=== PATIENT | male | born 1950 | race Two or more races ===

== ENCOUNTER 2020-04-11 12:21 | Emergency (ER) | payer MEDICARE, OTHER ==
[~2020-04-11] VITALS: Ht 185.4 cm; Wt 90.7 kg
[2020-04-11 13:05] LABS: Basophils # (auto) 0 10 ^3/uL (0-0.2); Basophils % (auto) 0.4 % (0.0-2.0); Eosinophils # (auto) 0.1 10 ^3/uL (0-0.8); Hematocrit 41.1 % (41.0-53.0); Hemoglobin 14.5 g/dL (13.5-17.5); Lymphocytes # (auto) 1.7 10 ^3/uL (0.4-5.4); Lymphocytes % (auto) 18.3 % (10.0-50.0); Mean Corpuscular Hemoglobin 30.5 pg (28.0-32.0); Mean Corpuscular Hgb Conc. 35.3 g/dL (32.0-36.0); Mean Corpuscular Volume 86.5 fL (80.0-100.0); Monocytes # (auto) 0.7 10 ^3/uL (0-1.3); Monocytes % (auto) 7.9 % (0.0-12.0); Neutrophils # (auto) 6.8 10 ^3/uL (1.6-8.6); Neutrophils % (auto) 72.4 % (37.0-80.0); Platelet Count (auto) 267 10^3/uL (140-450); Red Blood Cells 4.76 10^6/uL (4.5-5.90); Red Cell Distribution Width 12.9 % (11.8-14.3); White Blood Cell 9.4 10^3/uL (4.4-10.8)
[2020-04-11 13:16] LABS: Albumin 3.7 g/dL (3.4-5.0); Amylase 27 U/L (25-115); Anion Gap 5 (5-15); Blood Urea Nitrogen 11 mg/dL (7-18); Calcium 8.9 mg/dL (8.5-10.1); Carbon Dioxide 27 mmol/L (21-32); Chloride 104 mmol/L (98-107); Glucose 103 mg/dL (74-106); Lipase 76 U/L (73-393); Potassium 3.8 mmol/L (3.5-5.1); Sodium 136 mmol/L (136-145)
[2020-04-11 13:26] LABS: Alanine Aminotransferase 19 U/L (16-61); Alkaline Phosphatase 80 U/L (45-117); Aspartate Aminotransferase 20 U/L (15-37); BUN/Creatinine Ratio 9.8; Bilirubin, Total 0.6 mg/dL (0.2-1.0); GFR African American 83 mL/min; GFR Non-African American 69 mL/min; Total Protein 7.7 g/dL (6.4-8.2)
[2020-04-11] MEDS ORDERED: MORPHINE SULF INJ 2 MG/ML SYRINGE 1ML IM ONE (19:45)
[2020-04-11] MEDS ORDERED: ONDANSETRON HCL 4 MG/2 ML VIAL IV ONE (19:45)
[2020-04-11 22:29] VITALS: BP 120/78
== END 2020-04-11 22:31 | disposition short-term general hospital (02) ==
LOC: ER 12:21
DX: R10.9 Unspecified abdominal pain (principal); R59.1 Generalized enlarged lymph nodes; C85.90 Non-Hodgkin lymphoma, unspecified, unspecified site
CPT/HCPCS: 36415; 71045; 74176; 80053; 82150; 83690; 84484; 85025; 96372; 96374; 99285; J2270; J2405

== ENCOUNTER 2021-11-06 15:26 | Inpatient (IN) | payer MEDICARE, OTHER ==
[~2021-11-06] VITALS: Ht 182.9 cm; Wt 71.3 kg
[2021-11-06] MEDS ORDERED: SODIUM CHLORIDE 0.9% 1,000 ML IV ONE ×2 (16:45)
[2021-11-06 18:29] LABS: Hematocrit 32.9 % (41.0-53.0); Hemoglobin 11.1 g/dL (13.5-17.5); Mean Corpuscular Hemoglobin 31.2 pg (28.0-32.0); Mean Corpuscular Hgb Conc. 33.8 g/dL (32.0-36.0); Mean Corpuscular Volume 92.4 fL (80.0-100.0); Red Blood Cells 3.57 10^6/uL (4.5-5.90); Red Cell Distribution Width 21.9 % (11.8-14.3); White Blood Cell 18.1 10^3/uL (4.4-10.8)
[2021-11-06 18:43] LABS: Urine Bacteria FEW /hpf (None Seen); Urine Blood Negative /uL (Negative); Urine Mucus FEW (None Seen); Urine Specific Gravity 1.014 (1.001-1.035); Urine WBC 8 /hpf (0 - 3)
[2021-11-06 18:49] LABS: Albumin 1.9 g/dL (3.4-5.0); Calcium 8.8 mg/dL (8.5-10.1); Potassium 3.9 mmol/L (3.5-5.1)
[2021-11-06 18:50] LABS: INR 1.22 (0.9-1.15); Partial Thromboplastin Time 43.7 sec (23.6-33.0)
[2021-11-06 18:51] LABS: BUN/Creatinine Ratio 33.8
[2021-11-06 19:04] LABS: Bilirubin, Total 0.7 mg/dL (0.2-1.0); Total Protein 5.5 g/dL (6.4-8.2)
[2021-11-06 19:15] LABS: Basophils % (manual) 0 (0.0-2.0); Blast Cells 0; Eosinophils % (manual) 0 (0-7); Metamyelocytes % 0; Myelocytes % 0; Promyelocytes % 0
[2021-11-06 19:35] LABS: Band Neutrophils % (manual) 2; Lymphocytes % (manual) 5 (10.0-50.0); Monocytes % (manual) 7 (0-12); Reactive Lymphocytes 3
[2021-11-06] MEDS ORDERED: FUROSEMIDE 40 MG/4 ML VIAL IV ONE (23:30)
[2021-11-06] MEDS ORDERED: cefTRIAXone 1GM/50ML D5W 50 ML IV ONE (23:30)
[2021-11-06] MEDS ORDERED: metroNIDAZOLE 500MG/100ML 100 ML IV ONE (23:30)
[2021-11-07] VITALS (7 sets, daily range): BP systolic 125–141; BP diastolic 91–96
[2021-11-07 00:02] LABS: Cholesterol 100 mg/dL (< 200); Lipase 39 U/L (73-393); Triglycerides 88 mg/dL (< 150)
[2021-11-07 00:04] LABS: HDL Cholesterol 27 mg/dL (40-59); LDL Cholesterol 61 mg/dL (< 100)
[2021-11-07] MEDS: MORPHINE SULFATE INJ 2 MG/ml SYRG IV PRN ×2 (03:37→16:54)
[2021-11-07] MEDS ORDERED: metroNIDAZOLE 500MG/100ML 100 ML IV SCH (06:00)
[2021-11-07 07:55] LABS: Hematocrit 33.4 % (41.0-53.0); Hemoglobin 11.2 g/dL (13.5-17.5); Mean Corpuscular Hemoglobin 31.3 pg (28.0-32.0); Mean Corpuscular Hgb Conc. 33.6 g/dL (32.0-36.0); Red Blood Cells 3.59 10^6/uL (4.5-5.90); White Blood Cell 23.7 10^3/uL (4.4-10.8)
[2021-11-07] MEDS ORDERED: TRAZ-184 PO (08:00)
[2021-11-07] MEDS ORDERED: MORP30TA5 PO (08:00)
[2021-11-07] MEDS ORDERED: PANT40T PO (08:00)
[2021-11-07] MEDS ORDERED: ONDA-180 PO (08:00)
[2021-11-07] MEDS ORDERED: PARO-135 (08:00)
[2021-11-07] MEDS ORDERED: FURO40TA4 PO (08:00)
[2021-11-07] MEDS ORDERED: LEVE750T3 PO (08:00)
[2021-11-07 08:15] LABS: BUN/Creatinine Ratio 32.2; Calcium 9.1 mg/dL (8.5-10.1); Potassium 3.9 mmol/L (3.5-5.1)
[2021-11-07 08:17] LABS: Red Cell Distribution Width 21.8 % (11.8-14.3)
[2021-11-07 08:18] LABS: Total Protein 5.5 g/dL (6.4-8.2)
[2021-11-07 08:19] LABS: Basophils % (manual) 0 (0.0-2.0); Blast Cells 0; Eosinophils % (manual) 0 (0-7); Metamyelocytes % 0; Myelocytes % 0; Promyelocytes % 0; Reactive Lymphocytes 0
[2021-11-07 08:48] LABS: Band Neutrophils % (manual) 12; Lymphocytes % (manual) 1 (10.0-50.0); Monocytes % (manual) 12 (0-12)
[2021-11-07] MEDS ORDERED: FUROSEMIDE 40 MG/4 ML VIAL IV SCH (10:00)
[2021-11-07] MEDS: ENOXAPARIN SOD 40 MG/0.4 ML SYRINGE SC SCH (10:01)
[2021-11-07] MEDS ORDERED: PIPERACILLIN-TAZOB 3.375GM 100 ML IV ONE (12:45)
[2021-11-07] MEDS ORDERED: CLINDAMYCIN 900MG IV 50 ML IV ONE (12:45)
[2021-11-07] MEDS ORDERED: SODIUM CHLORIDE 0.9% 1,000 ML IV ONE (14:30)
[2021-11-07] MEDS: SODIUM CHLORIDE 0.9% 1,000 ML IV SCH (14:44)
[2021-11-07] MEDS: PIPERACILLIN-TAZOB 3.375GM 100 ML IV SCH (16:51)
[2021-11-07] MEDS: ONDANSETRON HCL 4 MG/2 ML VIAL IV PRN (16:55)
[2021-11-07] MEDS: CLINDAMYCIN 600MG IV 50 ML IV SCH (20:57)
[2021-11-07] MEDS ORDERED: cefTRIAXone 1GM/50ML D5W 50 ML IV SCH (22:00)
[2021-11-08] MEDS: PIPERACILLIN-TAZOB 3.375GM 100 ML IV SCH ×4 (00:01→18:38)
[2021-11-08] MEDS: MORPHINE SULFATE INJ 2 MG/ml SYRG IV PRN ×2 (00:23→05:42)
[2021-11-08] MEDS: SODIUM CHLORIDE 0.9% 1,000 ML IV SCH ×2 (00:30→13:10)
[2021-11-08 05:00] VITALS: BP 140/89
[2021-11-08] MEDS: CLINDAMYCIN 600MG IV 50 ML IV SCH (05:01)
[2021-11-08] MEDS: ENOXAPARIN SOD 40 MG/0.4 ML SYRINGE SC SCH (07:35)
[2021-11-08] MEDS ORDERED: LIDOCAINE 2%HCL (LOCAL ANESTH.) INJ 10ml MDV ONE (08:33)
[2021-11-08] MEDS ORDERED: OMNIPAQUE ORAL SOLN 500ml 12mg/ml PO ONE (08:36)
[2021-11-08 09:00] VITALS: BP 119/73
[2021-11-08] MEDS ORDERED: IOHEXOL 350 MG/ML 100ML IJ ONE (09:06)
[2021-11-08 13:00] VITALS: BP 98/65
[2021-11-08] MEDS: HYDROmorphone HCL 2 MG/ML VL/or syr IV PRN (13:34)
[2021-11-08 17:00] VITALS: BP 108/69
[2021-11-08 22:00] VITALS: BP 105/64
[2021-11-08] MEDS ORDERED: TEMAZEPAM 15 MG CAP PO ONE (22:45)
[2021-11-08] MEDS: metroNIDAZOLE 500MG/100ML 100 ML IV SCH (22:50)
[2021-11-09] MEDS: PIPERACILLIN-TAZOB 3.375GM 100 ML IV SCH ×4 (00:05→18:53)
[2021-11-09 05:00] VITALS: BP 103/70
[2021-11-09] MEDS: SODIUM CHLORIDE 0.9% 1,000 ML IV SCH ×2 (05:25→22:40)
[2021-11-09] MEDS: HYDROmorphone HCL 2 MG/ML VL/or syr IV PRN ×3 (05:53→20:16)
[2021-11-09] MEDS: metroNIDAZOLE 500MG/100ML 100 ML IV SCH ×3 (06:00→22:40)
[2021-11-09 09:00] VITALS: BP 105/69
[2021-11-09 09:00] LABS: Hematocrit 25.9 % (41.0-53.0); Mean Corpuscular Hemoglobin 31.8 pg (28.0-32.0); Mean Corpuscular Hgb Conc. 34.7 g/dL (32.0-36.0); Mean Corpuscular Volume 91.9 fL (80.0-100.0); Red Blood Cells 2.81 10^6/uL (4.5-5.90); White Blood Cell 13.5 10^3/uL (4.4-10.8)
[2021-11-09 09:09] LABS: Red Cell Distribution Width 21.3 % (11.8-14.3)
[2021-11-09 09:11] LABS: Basophils % (manual) 0 (0.0-2.0); Blast Cells 0; Eosinophils % (manual) 0 (0-7); Metamyelocytes % 0; Myelocytes % 0; Promyelocytes % 0; Reactive Lymphocytes 0
[2021-11-09 09:29] LABS: Calcium 8.7 mg/dL (8.5-10.1)
[2021-11-09 09:35] LABS: Band Neutrophils % (manual) 2; Lymphocytes % (manual) 1 (10.0-50.0); Monocytes % (manual) 4 (0-12)
[2021-11-09] MEDS: POTASSIUM CHL 20MEQ/100ML 100 ML IV SCH ×2 (13:40→17:36)
[2021-11-09] MEDS ORDERED: GASTROGRAFIN 120 ML SOL ONE (15:59)
[2021-11-09 17:00] VITALS: BP 105/71
[2021-11-09 22:00] VITALS: BP 111/79
[2021-11-10] VITALS (27 sets, daily range): BP systolic 82–130; BP diastolic 54–90
[2021-11-10] MEDS: PIPERACILLIN-TAZOB 3.375GM 100 ML IV SCH ×3 (00:59→11:42)
[2021-11-10] MEDS: HYDROmorphone HCL 2 MG/ML VL/or syr IV PRN ×3 (01:00→10:14)
[2021-11-10] MEDS: metroNIDAZOLE 500MG/100ML 100 ML IV SCH ×3 (06:11→23:06)
[2021-11-10] MEDS ORDERED: PPN PER PHARMACY 0 ML IV SCH (07:00)
[2021-11-10 09:05] LABS: Albumin 1.7 g/dL (3.4-5.0); BUN/Creatinine Ratio 41.5; Calcium 8.6 mg/dL (8.5-10.1); Potassium 3.2 mmol/L (3.5-5.1)
[2021-11-10 09:10] LABS: Bilirubin, Total 0.6 mg/dL (0.2-1.0); Phosphorus 1.9 mg/dL (2.5-4.90); Total Protein 4.7 g/dL (6.4-8.2)
[2021-11-10] MEDS ORDERED: DEXTROSE (50%) 50ML SYRG IV SCH (10:00)
[2021-11-10] MEDS: InsuLIN REG 1unit/0.01ml Soln (100units/ml) SC SCH ×2 (11:42→23:41)
[2021-11-10] MEDS: ACCU-CHEK COMFORT CURVE STRIP VI SCH ×2 (11:43→23:41)
[2021-11-10] MEDS ORDERED: HYDROmorphone HCL 2 MG/ML VL/or syr IV ONE (12:00)
[2021-11-10] MEDS ORDERED: ETOMIDATE (2MG/ML) 20ML VIAL IV ONE (16:35)
[2021-11-10] MEDS ORDERED: fentaNYL CITRATE 100 MCG/2 ML VL ONE ×2 (16:40→16:41)
[2021-11-10] MEDS ORDERED: MIDAZOLAM HCL 2MG/2ML 2ml VIAL (1mg/ml) ONE (16:40)
[2021-11-10 16:52] LABS: INR 1.3 (0.9-1.15); Partial Thromboplastin Time 41.3 sec (23.6-33.0)
[2021-11-10] MEDS ORDERED: ROCURONIUM 10MG/ML 10ML VIAL IV ONE (16:53)
[2021-11-10] MEDS ORDERED: HYDROmorphone HCL 2 MG/ML VL/or syr ONE (17:21)
[2021-11-10] MEDS ORDERED: POVIDONE IODINE 10 % TOPICAL OINT 30GM TOP ONE (17:59)
[2021-11-10] MEDS ORDERED: fentaNYL Drip 2500mCg/250mlNS 250 ML IV ONE (18:42)
[2021-11-10] MEDS ORDERED: PROPOFOL 100 ML IV ONE (18:51)
[2021-11-10] MEDS: PHENYLEPHRINE IV 250 ML IV SCH (19:00)
[2021-11-10] MEDS: PROPOFOL 100 ML IV SCH (19:00)
[2021-11-10] MEDS ORDERED: fentaNYL Drip 2500mCg/250mlNS 250 ML IV SCH (20:00)
[2021-11-10] MEDS ORDERED: PPN PER PHARMACY IV NR ×8 (20:00)
[2021-11-10] MEDS ORDERED: MIDAZOLAM DRIP 50 mg/50mL 50 ML IV SCH (20:00)
[2021-11-10 20:14] LABS: Mean Corpuscular Hgb Conc. 32.7 g/dL (32.0-36.0)
[2021-11-10 20:20] LABS: Hematocrit 31.4 % (41.0-53.0); Hemoglobin 10.3 g/dL (13.5-17.5); Mean Corpuscular Hemoglobin 30.8 pg (28.0-32.0); Mean Corpuscular Volume 94.3 fL (80.0-100.0); Red Blood Cells 3.33 10^6/uL (4.5-5.90); White Blood Cell 21.4 10^3/uL (4.4-10.8)
[2021-11-10 20:23] LABS: Red Cell Distribution Width 21.6 % (11.8-14.3)
[2021-11-10 20:24] LABS: Basophils % (manual) 0 (0.0-2.0); Blast Cells 0; Eosinophils % (manual) 0 (0-7); Metamyelocytes % 0; Myelocytes % 0; Promyelocytes % 0
[2021-11-10 20:37] LABS: Albumin 1.7 g/dL (3.4-5.0); Calcium 8.3 mg/dL (8.5-10.1); Potassium 3.1 mmol/L (3.5-5.1)
[2021-11-10 20:40] LABS: BUN/Creatinine Ratio 36.2
[2021-11-10 20:42] LABS: Bilirubin, Total 0.9 mg/dL (0.2-1.0); Total Protein 4.5 g/dL (6.4-8.2)
[2021-11-10 21:07] LABS: Band Neutrophils % (manual) 3; Lymphocytes % (manual) 3 (10.0-50.0); Monocytes % (manual) 14 (0-12)
[2021-11-10 21:08] LABS: Reactive Lymphocytes 2
[2021-11-11] VITALS (38 sets, daily range): BP systolic 84–119; BP diastolic 60–81
[2021-11-11] MEDS: POTASSIUM CHL 20MEQ/100ML 100 ML IV SCH ×2 (00:20→01:43)
[2021-11-11] MEDS: PIPERACILLIN-TAZOB 3.375GM 100 ML IV SCH ×5 (00:22→23:39)
[2021-11-11] MEDS: PHENYLEPHRINE IV 250 ML IV SCH ×4 (01:22→23:40)
[2021-11-11] MEDS: PROPOFOL 100 ML IV SCH (02:43)
[2021-11-11] MEDS: SODIUM CHLORIDE 0.9% 1,000 ML IV SCH ×4 (03:08→23:39)
[2021-11-11 04:34] LABS: Albumin 1.7 g/dL (3.4-5.0); Calcium 8.3 mg/dL (8.5-10.1); Magnesium 2.1 mg/dL (1.6-2.6); Potassium 3.5 mmol/L (3.5-5.1)
[2021-11-11 04:36] LABS: BUN/Creatinine Ratio 32.1
[2021-11-11 04:37] LABS: Hemoglobin 10.1 g/dL (13.5-17.5)
[2021-11-11 04:39] LABS: Bilirubin, Total 0.9 mg/dL (0.2-1.0); Phosphorus 3.1 mg/dL (2.5-4.90); Total Protein 4.5 g/dL (6.4-8.2)
[2021-11-11 04:42] LABS: Hematocrit 31.2 % (41.0-53.0); Mean Corpuscular Hemoglobin 30.1 pg (28.0-32.0); Mean Corpuscular Hgb Conc. 32.3 g/dL (32.0-36.0); Mean Corpuscular Volume 93.3 fL (80.0-100.0); Red Blood Cells 3.34 10^6/uL (4.5-5.90); White Blood Cell 26.1 10^3/uL (4.4-10.8)
[2021-11-11 04:53] LABS: Red Cell Distribution Width 21.3 % (11.8-14.3)
[2021-11-11 04:55] LABS: Basophils % (manual) 0 (0.0-2.0); Blast Cells 0; Eosinophils % (manual) 0 (0-7); Metamyelocytes % 0; Myelocytes % 0; Promyelocytes % 0; Reactive Lymphocytes 0
[2021-11-11] MEDS: metroNIDAZOLE 500MG/100ML 100 ML IV SCH ×3 (04:59→22:51)
[2021-11-11] MEDS: ACCU-CHEK COMFORT CURVE STRIP VI SCH ×4 (05:24→23:39)
[2021-11-11] MEDS: InsuLIN REG 1unit/0.01ml Soln (100units/ml) SC SCH ×4 (05:24→23:39)
[2021-11-11 07:29] LABS: Band Neutrophils % (manual) 10; Lymphocytes % (manual) 6 (10.0-50.0); Monocytes % (manual) 4 (0-12)
[2021-11-11] MEDS: PANTOPRAZOLE 40 MG/10 ML VIAL INJ IV SCH (10:44)
[2021-11-11] MEDS ORDERED: TPN PER PHARMACY 0 ML IV SCH (14:15)
[2021-11-11] MEDS: ONDANSETRON HCL 4 MG/2 ML VIAL IV PRN ×3 (14:20→23:42)
[2021-11-11] MEDS: HYDROmorphone HCL 2 MG/ML VL/or syr IV PRN ×3 (14:29→23:41)
[2021-11-11] MEDS ORDERED: LIDOCAINE 1% (LOCAL ANESTH.) PF 5ml SDV ID ONE (15:15)
[2021-11-11] MEDS ORDERED: PHENYLEPHRINE HCL 10 MG/ML VL ONE (15:37)
[2021-11-11] MEDS ORDERED: PPN PER PHARMACY IV NR ×8 (20:00)
[2021-11-11] MEDS: SODIUM CHLOR 0.9% PF (SALINE LOCK) 10ML VIAL/SYR IV SCH (22:51)
[2021-11-12] VITALS (70 sets, daily range): BP systolic 98–132; BP diastolic 64–79
[2021-11-12 04:03] LABS: Albumin 1.4 g/dL (3.4-5.0); BUN/Creatinine Ratio 36.8; Calcium 7.5 mg/dL (8.5-10.1); Magnesium 2.1 mg/dL (1.6-2.6); Potassium 3.3 mmol/L (3.5-5.1)
[2021-11-12 04:06] LABS: Bilirubin, Total 0.5 mg/dL (0.2-1.0); Phosphorus 2.8 mg/dL (2.5-4.90); Total Protein 3.6 g/dL (6.4-8.2)
[2021-11-12] MEDS: HYDROmorphone HCL 2 MG/ML VL/or syr IV PRN ×5 (04:14→22:22)
[2021-11-12] MEDS: ONDANSETRON HCL 4 MG/2 ML VIAL IV PRN ×5 (04:15→22:19)
[2021-11-12] MEDS: metroNIDAZOLE 500MG/100ML 100 ML IV SCH ×3 (05:33→22:24)
[2021-11-12] MEDS: PIPERACILLIN-TAZOB 3.375GM 100 ML IV SCH ×4 (05:33→23:37)
[2021-11-12] MEDS: InsuLIN REG 1unit/0.01ml Soln (100units/ml) SC SCH ×4 (05:48→23:52)
[2021-11-12] MEDS: ACCU-CHEK COMFORT CURVE STRIP VI SCH ×4 (05:48→23:52)
[2021-11-12] MEDS: SODIUM CHLOR 0.9% PF (SALINE LOCK) 10ML VIAL/SYR IV SCH ×2 (09:24→22:27)
[2021-11-12] MEDS: PANTOPRAZOLE 40 MG/10 ML VIAL INJ IV SCH (09:25)
[2021-11-12] MEDS: SODIUM CHLORIDE 0.9% 1,000 ML IV SCH (10:03)
[2021-11-12 10:21] LABS: White Blood Cell 9.5 10^3/uL (4.4-10.8)
[2021-11-12 10:23] LABS: Hematocrit 21.7 % (41.0-53.0); Mean Corpuscular Hgb Conc. 31.6 g/dL (32.0-36.0); Mean Corpuscular Volume 101.3 fL (80.0-100.0); Red Blood Cells 2.14 10^6/uL (4.5-5.90)
[2021-11-12 10:28] LABS: Red Cell Distribution Width 22.2 % (11.8-14.3)
[2021-11-12 10:35] LABS: Hemoglobin 6.9 g/dL (13.5-17.5)
[2021-11-12 10:36] LABS: Basophils % (manual) 0 (0.0-2.0); Blast Cells 0; Eosinophils % (manual) 0 (0-7); Myelocytes % 0; Promyelocytes % 0; Reactive Lymphocytes 0
[2021-11-12 10:47] LABS: Band Neutrophils % (manual) 13; Lymphocytes % (manual) 8 (10.0-50.0); Metamyelocytes % 1; Monocytes % (manual) 2 (0-12)
[2021-11-12] MEDS: POTASSIUM CHL 20MEQ/100ML 100 ML IV SCH ×2 (12:11→14:22)
[2021-11-12] MEDS: PHENYLEPHRINE IV 250 ML IV SCH ×2 (13:40→22:00)
[2021-11-12] MEDS: SOD CHL 0.45% 1,000 ML IV SCH (14:58)
[2021-11-12] MEDS ORDERED: TPN PER PHARMACY IV NR ×9 (20:00)
[2021-11-13] VITALS (70 sets, daily range): BP systolic 107–144; BP diastolic 76–95
[2021-11-13] MEDS: ONDANSETRON HCL 4 MG/2 ML VIAL IV PRN ×5 (03:37→22:43)
[2021-11-13] MEDS: HYDROmorphone HCL 2 MG/ML VL/or syr IV PRN ×5 (03:39→22:44)
[2021-11-13 04:27] LABS: Hemoglobin 9.1 g/dL (13.5-17.5); Mean Corpuscular Hemoglobin 31.3 pg (28.0-32.0); Mean Corpuscular Hgb Conc. 33.6 g/dL (32.0-36.0); Mean Corpuscular Volume 93.2 fL (80.0-100.0); White Blood Cell 11.8 10^3/uL (4.4-10.8)
[2021-11-13 04:31] LABS: Basophils % (manual) 0 (0.0-2.0); Blast Cells 0; Eosinophils % (manual) 0 (0-7); Metamyelocytes % 0; Myelocytes % 0; Promyelocytes % 0; Reactive Lymphocytes 0
[2021-11-13 04:36] LABS: Albumin 1.5 g/dL (3.4-5.0); Calcium 7.7 mg/dL (8.5-10.1); Potassium 3.4 mmol/L (3.5-5.1)
[2021-11-13 04:38] LABS: BUN/Creatinine Ratio 38.5
[2021-11-13 04:41] LABS: Bilirubin, Total 0.6 mg/dL (0.2-1.0); Phosphorus 1.6 mg/dL (2.5-4.90); Total Protein 3.9 g/dL (6.4-8.2)
[2021-11-13 05:08] LABS: Band Neutrophils % (manual) 2; Lymphocytes % (manual) 3 (10.0-50.0); Monocytes % (manual) 2 (0-12)
[2021-11-13] MEDS: SOD CHL 0.45% 1,000 ML IV SCH ×2 (05:31→17:25)
[2021-11-13] MEDS: metroNIDAZOLE 500MG/100ML 100 ML IV SCH ×3 (05:32→21:58)
[2021-11-13] MEDS: PIPERACILLIN-TAZOB 3.375GM 100 ML IV SCH ×3 (05:38→18:27)
[2021-11-13] MEDS: ACCU-CHEK COMFORT CURVE STRIP VI SCH ×3 (05:48→18:28)
[2021-11-13] MEDS: InsuLIN REG 1unit/0.01ml Soln (100units/ml) SC SCH ×3 (05:48→18:00)
[2021-11-13] MEDS ORDERED: POTASSIUM PHOSPHATE 22 MEQ in SODIUM CHL 0.9% 100 ML IV ONE (10:00)
[2021-11-13] MEDS: PANTOPRAZOLE 40 MG/10 ML VIAL INJ IV SCH (10:15)
[2021-11-13] MEDS: SODIUM CHLOR 0.9% PF (SALINE LOCK) 10ML VIAL/SYR IV SCH ×2 (10:15→22:00)
[2021-11-13] MEDS ORDERED: PANTOPRAZOLE 40 MG/10 ML VIAL INJ IV ONE (12:30)
[2021-11-13] MEDS ORDERED: LORazepam 2MG/ML-1ML VIAL IV PRN (15:15)
[2021-11-13] MEDS ORDERED: TPN PER PHARMACY IV NR ×9 (20:00)
[2021-11-14] VITALS (25 sets, daily range): BP systolic 88–135; BP diastolic 64–85
[2021-11-14] MEDS: ACCU-CHEK COMFORT CURVE STRIP VI SCH ×5 (00:04→23:36)
[2021-11-14] MEDS: PIPERACILLIN-TAZOB 3.375GM 100 ML IV SCH ×5 (00:10→23:37)
[2021-11-14] MEDS: SOD CHL 0.45% 1,000 ML IV SCH (01:05)
[2021-11-14] MEDS: ONDANSETRON HCL 4 MG/2 ML VIAL IV PRN ×6 (02:33→22:13)
[2021-11-14] MEDS: HYDROmorphone HCL 2 MG/ML VL/or syr IV PRN ×6 (02:34→22:12)
[2021-11-14] MEDS: metroNIDAZOLE 500MG/100ML 100 ML IV SCH ×3 (05:12→20:55)
[2021-11-14] MEDS: InsuLIN REG 1unit/0.01ml Soln (100units/ml) SC SCH ×5 (05:16→23:36)
[2021-11-14] MEDS: PHENYLEPHRINE IV 250 ML IV SCH ×3 (07:20→23:37)
[2021-11-14 07:32] LABS: Calcium 7.7 mg/dL (8.5-10.1); Magnesium 2.1 mg/dL (1.6-2.6); Potassium 3.2 mmol/L (3.5-5.1)
[2021-11-14 07:34] LABS: Phosphorus 1.9 mg/dL (2.5-4.90)
[2021-11-14] MEDS ORDERED: POTASSIUM PHOSPHATE 44 MEQ in D5W 5% 250 ML IV ONE (09:30)
[2021-11-14] MEDS: PANTOPRAZOLE 40 MG/10 ML VIAL INJ IV SCH (10:15)
[2021-11-14] MEDS: SODIUM CHLOR 0.9% PF (SALINE LOCK) 10ML VIAL/SYR IV SCH ×2 (10:36→20:55)
[2021-11-14] MEDS ORDERED: ENOXAPARIN SOD 30 MG/0.3 ML SYRINGE SC ONE (15:15)
[2021-11-14] MEDS ORDERED: DOCUSATE SOD 100 MG CAP PO ONE (15:30)
[2021-11-14] MEDS ORDERED: TPN PER PHARMACY IV NR ×8 (20:00)
[2021-11-14] MEDS ORDERED: SOD CHL 0.45% 1,000 ML IV SCH (20:00)
[2021-11-14] MEDS: LACTULOSE 20Gm/30ML SOLN PO SCH (22:00)
[2021-11-14] MEDS: DOCUSATE SOD 100 MG CAP PO SCH (22:00)
[2021-11-15] VITALS (18 sets, daily range): BP systolic 91–113; BP diastolic 64–76
[2021-11-15] MEDS: HYDROmorphone HCL 2 MG/ML VL/or syr IV PRN ×6 (02:10→23:25)
[2021-11-15] MEDS: ONDANSETRON HCL 4 MG/2 ML VIAL IV PRN ×6 (02:11→23:46)
[2021-11-15 04:36] LABS: Hematocrit 25.9 % (41.0-53.0); Hemoglobin 8.8 g/dL (13.5-17.5); Mean Corpuscular Hgb Conc. 33.9 g/dL (32.0-36.0); Mean Corpuscular Volume 94.6 fL (80.0-100.0); Red Blood Cells 2.74 10^6/uL (4.5-5.90)
[2021-11-15 04:55] LABS: Albumin 1.4 g/dL (3.4-5.0); BUN/Creatinine Ratio 44.7; Calcium 7.3 mg/dL (8.5-10.1); Magnesium 1.8 mg/dL (1.6-2.6); Phosphorus 1.8 mg/dL (2.5-4.90); Potassium 3.6 mmol/L (3.5-5.1)
[2021-11-15 05:03] LABS: Red Cell Distribution Width 20.8 % (11.8-14.3)
[2021-11-15 05:05] LABS: Basophils % (manual) 0 (0.0-2.0); Blast Cells 0; Eosinophils % (manual) 0 (0-7); Metamyelocytes % 0; Myelocytes % 0; Promyelocytes % 0; Reactive Lymphocytes 0
[2021-11-15] MEDS: InsuLIN REG 1unit/0.01ml Soln (100units/ml) SC SCH ×4 (06:00→23:47)
[2021-11-15] MEDS: metroNIDAZOLE 500MG/100ML 100 ML IV SCH ×3 (06:10→21:52)
[2021-11-15 06:16] LABS: Band Neutrophils % (manual) 5; Lymphocytes % (manual) 5 (10.0-50.0); Monocytes % (manual) 2 (0-12)
[2021-11-15] MEDS: ACCU-CHEK COMFORT CURVE STRIP VI SCH ×4 (06:16→23:47)
[2021-11-15] MEDS: PIPERACILLIN-TAZOB 3.375GM 100 ML IV SCH ×4 (07:14→23:47)
[2021-11-15] MEDS: PHENYLEPHRINE IV 250 ML IV SCH (08:20)
[2021-11-15] MEDS ORDERED: SODIUM PHOSP 40 MEQ in D5W 5% 250 ML IV ONE (08:45)
[2021-11-15] MEDS: LACTULOSE 20Gm/30ML SOLN PO SCH ×2 (09:43→21:52)
[2021-11-15] MEDS: PANTOPRAZOLE 40 MG/10 ML VIAL INJ IV SCH (09:43)
[2021-11-15] MEDS: SODIUM CHLOR 0.9% PF (SALINE LOCK) 10ML VIAL/SYR IV SCH ×2 (09:44→21:52)
[2021-11-15] MEDS: DOCUSATE SOD 100 MG CAP PO SCH ×2 (09:44→21:52)
[2021-11-15] MEDS ORDERED: ENOXAPARIN SOD 30 MG/0.3 ML SYRINGE SC SCH (10:00)
[2021-11-15] MEDS ORDERED: TPN PER PHARMACY IV NR ×9 (20:00)
[2021-11-16] MEDS: HYDROmorphone HCL 2 MG/ML VL/or syr IV PRN ×2 (03:33→18:57)
[2021-11-16] MEDS: ONDANSETRON HCL 4 MG/2 ML VIAL IV PRN ×3 (03:33→18:57)
[2021-11-16 04:57] VITALS: BP 106/67
[2021-11-16] MEDS: metroNIDAZOLE 500MG/100ML 100 ML IV SCH ×3 (05:18→21:53)
[2021-11-16] MEDS: ACCU-CHEK COMFORT CURVE STRIP VI SCH ×3 (05:19→18:04)
[2021-11-16] MEDS: InsuLIN REG 1unit/0.01ml Soln (100units/ml) SC SCH ×3 (05:19→18:00)
[2021-11-16 05:35] LABS: Hemoglobin 8.5 g/dL (13.5-17.5)
[2021-11-16 05:37] LABS: Hematocrit 25.8 % (41.0-53.0); Mean Corpuscular Hemoglobin 31.7 pg (28.0-32.0); Mean Corpuscular Hgb Conc. 32.9 g/dL (32.0-36.0); Mean Corpuscular Volume 96.3 fL (80.0-100.0); Red Blood Cells 2.68 10^6/uL (4.5-5.90); White Blood Cell 15.7 10^3/uL (4.4-10.8)
[2021-11-16 05:38] LABS: Red Cell Distribution Width 20.5 % (11.8-14.3)
[2021-11-16 05:40] LABS: Basophils % (manual) 0 (0.0-2.0); Blast Cells 0; Eosinophils % (manual) 0 (0-7); Metamyelocytes % 0; Myelocytes % 0; Promyelocytes % 0; Reactive Lymphocytes 0
[2021-11-16] MEDS: PIPERACILLIN-TAZOB 3.375GM 100 ML IV SCH ×3 (06:17→18:04)
[2021-11-16 08:24] LABS: Band Neutrophils % (manual) 4; Lymphocytes % (manual) 11 (10.0-50.0); Monocytes % (manual) 2 (0-12)
[2021-11-16] MEDS: LACTULOSE 20Gm/30ML SOLN PO SCH ×2 (09:15→21:54)
[2021-11-16] MEDS: DOCUSATE SOD 100 MG CAP PO SCH ×2 (09:15→21:53)
[2021-11-16] MEDS: PANTOPRAZOLE 40 MG/10 ML VIAL INJ IV SCH (09:15)
[2021-11-16] MEDS ORDERED: HYDROmorphone HCL 2 MG/ML VL/or syr IV PRN (09:15)
[2021-11-16 09:33] VITALS: BP 126/78
[2021-11-16 09:53] LABS: Calcium 7.4 mg/dL (8.5-10.1); Magnesium 2.3 mg/dL (1.6-2.6); Potassium 3.4 mmol/L (3.5-5.1)
[2021-11-16 09:55] LABS: BUN/Creatinine Ratio 41.5; Phosphorus 1.8 mg/dL (2.5-4.90)
[2021-11-16] MEDS: SODIUM CHLOR 0.9% PF (SALINE LOCK) 10ML VIAL/SYR IV SCH ×2 (10:00→21:53)
[2021-11-16] MEDS ORDERED: SODIUM PHOSP 40 MEQ in D5W 5% 250 ML IV ONE ×2 (10:45→12:45)
[2021-11-16] MEDS ORDERED: POTASSIUM PHOSP 26.4MEQ(18MMOL) IN NS 100 ML IV ONE (10:45)
[2021-11-16] MEDS ORDERED: MORPHINE SULF 15mg ER tab PO ONE (12:45)
[2021-11-16 13:00] VITALS: BP 111/71
[2021-11-16 17:24] VITALS: BP 99/64
[2021-11-16] MEDS ORDERED: TPN PER PHARMACY IV NR ×9 (20:00)
[2021-11-16] MEDS: MORPHINE SULF 15mg ER tab PO SCH (21:54)
[2021-11-16 22:00] VITALS: BP 118/74
[2021-11-17] MEDS: ONDANSETRON HCL 4 MG/2 ML VIAL IV PRN ×4 (00:44→18:08)
[2021-11-17] MEDS: HYDROmorphone HCL 2 MG/ML VL/or syr IV PRN ×4 (00:44→18:07)
[2021-11-17] MEDS: ACCU-CHEK COMFORT CURVE STRIP VI SCH ×4 (00:55→18:06)
[2021-11-17] MEDS: InsuLIN REG 1unit/0.01ml Soln (100units/ml) SC SCH ×4 (00:55→18:00)
[2021-11-17] MEDS: PIPERACILLIN-TAZOB 3.375GM 100 ML IV SCH ×4 (00:56→18:06)
[2021-11-17 05:00] VITALS: BP 126/70
[2021-11-17] MEDS: metroNIDAZOLE 500MG/100ML 100 ML IV SCH ×2 (05:25→14:06)
[2021-11-17 06:19] LABS: Hematocrit 21.4 % (41.0-53.0); Hemoglobin 7.4 g/dL (13.5-17.5); Red Blood Cells 2.35 10^6/uL (4.5-5.90)
[2021-11-17 06:21] LABS: Mean Corpuscular Hemoglobin 31.6 pg (28.0-32.0); Mean Corpuscular Hgb Conc. 34.5 g/dL (32.0-36.0); Mean Corpuscular Volume 91.3 fL (80.0-100.0); White Blood Cell 14.3 10^3/uL (4.4-10.8)
[2021-11-17 06:31] LABS: Albumin 1.3 g/dL (3.4-5.0); Calcium 7.2 mg/dL (8.5-10.1); Magnesium 1.9 mg/dL (1.6-2.6); Potassium 3.7 mmol/L (3.5-5.1)
[2021-11-17 06:36] LABS: BUN/Creatinine Ratio 42.1; Bilirubin, Total 0.4 mg/dL (0.2-1.0); Phosphorus 2.4 mg/dL (2.5-4.90); Total Protein 3.5 g/dL (6.4-8.2)
[2021-11-17 06:43] LABS: Red Cell Distribution Width 20.4 % (11.8-14.3)
[2021-11-17 06:45] LABS: Band Neutrophils % (manual) 0; Basophils % (manual) 0 (0.0-2.0); Blast Cells 0; Eosinophils % (manual) 0 (0-7); Myelocytes % 0; Promyelocytes % 0; Reactive Lymphocytes 0
[2021-11-17 08:42] LABS: Lymphocytes % (manual) 1 (10.0-50.0); Metamyelocytes % 1; Monocytes % (manual) 10 (0-12)
[2021-11-17 09:00] VITALS: BP 129/78
[2021-11-17] MEDS ORDERED: SODIUM PHOSP 40 MEQ in D5W 5% 250 ML IV ONE (09:00)
[2021-11-17] MEDS: LACTULOSE 20Gm/30ML SOLN PO SCH ×2 (10:10→21:55)
[2021-11-17] MEDS: PANTOPRAZOLE 40 MG/10 ML VIAL INJ IV SCH (10:10)
[2021-11-17] MEDS: SODIUM CHLOR 0.9% PF (SALINE LOCK) 10ML VIAL/SYR IV SCH ×2 (10:10→21:55)
[2021-11-17] MEDS: DOCUSATE SOD 100 MG CAP PO SCH ×2 (10:10→21:55)
[2021-11-17] MEDS: MORPHINE SULF 15mg ER tab PO SCH ×2 (10:11→21:35)
[2021-11-17 13:00] VITALS: BP 127/88
[2021-11-17 17:00] VITALS: BP 106/73
[2021-11-17] MEDS ORDERED: TPN PER PHARMACY IV NR ×9 (20:00)
[2021-11-17 22:00] VITALS: BP 100/77
[2021-11-18] MEDS: metroNIDAZOLE 500MG/100ML 100 ML IV SCH ×4 (01:42→21:32)
[2021-11-18] MEDS: PIPERACILLIN-TAZOB 3.375GM 100 ML IV SCH ×4 (01:43→17:02)
[2021-11-18] MEDS: HYDROmorphone HCL 2 MG/ML VL/or syr IV PRN ×5 (02:14→18:23)
[2021-11-18 05:00] VITALS: BP 144/81
[2021-11-18 05:52] LABS: Hematocrit 23.1 % (41.0-53.0); Red Blood Cells 2.54 10^6/uL (4.5-5.90)
[2021-11-18 05:54] LABS: Mean Corpuscular Hemoglobin 31.4 pg (28.0-32.0); Mean Corpuscular Hgb Conc. 34.5 g/dL (32.0-36.0); White Blood Cell 23.4 10^3/uL (4.4-10.8)
[2021-11-18] MEDS: ACCU-CHEK COMFORT CURVE STRIP VI SCH ×4 (06:00→17:02)
[2021-11-18] MEDS: InsuLIN REG 1unit/0.01ml Soln (100units/ml) SC SCH ×4 (06:00→17:02)
[2021-11-18 06:12] LABS: Basophils % (manual) 0 (0.0-2.0); Blast Cells 0; Eosinophils % (manual) 0 (0-7); Metamyelocytes % 0; Myelocytes % 0; Promyelocytes % 0; Reactive Lymphocytes 0; Red Cell Distribution Width 20.5 % (11.8-14.3)
[2021-11-18 06:14] LABS: Potassium 3.8 mmol/L (3.5-5.1)
[2021-11-18 06:25] LABS: Albumin 1.4 g/dL (3.4-5.0); BUN/Creatinine Ratio 35.7; Bilirubin, Total 0.6 mg/dL (0.2-1.0); Calcium 7.6 mg/dL (8.5-10.1); Magnesium 2.4 mg/dL (1.6-2.6); Phosphorus 2.9 mg/dL (2.5-4.90); Total Protein 4.1 g/dL (6.4-8.2)
[2021-11-18 09:08] LABS: Band Neutrophils % (manual) 4; Lymphocytes % (manual) 4 (10.0-50.0); Monocytes % (manual) 4 (0-12)
[2021-11-18 09:11] VITALS: BP 125/78
[2021-11-18] MEDS: PANTOPRAZOLE 40 MG/10 ML VIAL INJ IV SCH (09:45)
[2021-11-18] MEDS: DOCUSATE SOD 100 MG CAP PO SCH ×2 (09:45→21:18)
[2021-11-18] MEDS: LACTULOSE 20Gm/30ML SOLN PO SCH ×2 (09:45→21:18)
[2021-11-18] MEDS: SODIUM CHLOR 0.9% PF (SALINE LOCK) 10ML VIAL/SYR IV SCH ×2 (09:46→21:18)
[2021-11-18] MEDS: ONDANSETRON HCL 4 MG/2 ML VIAL IV PRN ×3 (09:54→18:22)
[2021-11-18] MEDS: MORPHINE SULF 15mg ER tab PO SCH (10:00)
[2021-11-18 13:00] VITALS: BP 99/66
[2021-11-18 17:06] VITALS: BP 134/81
[2021-11-18] MEDS ORDERED: TPN PER PHARMACY IV NR ×9 (20:00)
[2021-11-18] MEDS: MORPHINE SULF 30 mg ER tab PO SCH (21:33)
[2021-11-18 22:00] VITALS: BP 147/80
[2021-11-19] MEDS: PIPERACILLIN-TAZOB 3.375GM 100 ML IV SCH ×4 (00:15→18:26)
[2021-11-19] MEDS: ACCU-CHEK COMFORT CURVE STRIP VI SCH ×4 (00:15→18:34)
[2021-11-19] MEDS: HYDROmorphone HCL 2 MG/ML VL/or syr IV PRN ×4 (04:44→21:22)
[2021-11-19 05:00] VITALS: BP 115/69
[2021-11-19] MEDS: metroNIDAZOLE 500MG/100ML 100 ML IV SCH ×3 (05:04→21:23)
[2021-11-19] MEDS: InsuLIN REG 1unit/0.01ml Soln (100units/ml) SC SCH ×4 (05:05→18:26)
[2021-11-19 05:58] LABS: Hematocrit 24.6 % (41.0-53.0); Mean Corpuscular Hemoglobin 30.2 pg (28.0-32.0); Mean Corpuscular Hgb Conc. 32.3 g/dL (32.0-36.0); Mean Corpuscular Volume 93.3 fL (80.0-100.0); Red Blood Cells 2.64 10^6/uL (4.5-5.90); White Blood Cell 26.1 10^3/uL (4.4-10.8)
[2021-11-19 06:04] LABS: Potassium 3.9 mmol/L (3.5-5.1)
[2021-11-19 06:07] LABS: Red Cell Distribution Width 20.8 % (11.8-14.3)
[2021-11-19 06:09] LABS: Basophils % (manual) 0 (0.0-2.0); Blast Cells 0; Eosinophils % (manual) 0 (0-7); Metamyelocytes % 0; Promyelocytes % 0; Reactive Lymphocytes 0
[2021-11-19 06:13] LABS: Albumin 1.4 g/dL (3.4-5.0); BUN/Creatinine Ratio 39.5; Bilirubin, Total 0.6 mg/dL (0.2-1.0); Calcium 7.5 mg/dL (8.5-10.1); Phosphorus 2.5 mg/dL (2.5-4.90)
[2021-11-19 06:39] LABS: Band Neutrophils % (manual) 2
[2021-11-19 06:42] LABS: Myelocytes % 1
[2021-11-19 06:43] LABS: Lymphocytes % (manual) 2 (10.0-50.0); Monocytes % (manual) 3 (0-12)
[2021-11-19 09:00] VITALS: BP 120/80
[2021-11-19] MEDS: DOCUSATE SOD 100 MG CAP PO SCH ×2 (10:00→21:25)
[2021-11-19] MEDS: LACTULOSE 20Gm/30ML SOLN PO SCH ×2 (10:00→21:23)
[2021-11-19] MEDS: MORPHINE SULF 30 mg ER tab PO SCH ×2 (10:35→21:53)
[2021-11-19] MEDS: PANTOPRAZOLE 40 MG/10 ML VIAL INJ IV SCH (10:36)
[2021-11-19] MEDS: SODIUM CHLOR 0.9% PF (SALINE LOCK) 10ML VIAL/SYR IV SCH ×2 (10:36→21:23)
[2021-11-19 13:00] VITALS: BP 113/72
[2021-11-19] MEDS ORDERED: VANCOMYCIN PER PHARMACY 0 MG IV SCH (13:15)
[2021-11-19] MEDS ORDERED: VANCOMYCIN 1GM/250ML 250 ML IV ONE (14:00)
[2021-11-19] MEDS ORDERED: GASTROGRAFIN 120 ML SOL ONE (14:28)
[2021-11-19 16:36] VITALS: BP 105/66
[2021-11-19] MEDS ORDERED: TPN PER PHARMACY IV NR ×9 (20:00)
[2021-11-19 22:00] VITALS: BP 119/72
[2021-11-20] MEDS: ACCU-CHEK COMFORT CURVE STRIP VI SCH ×5 (00:01→22:42)
[2021-11-20] MEDS: PIPERACILLIN-TAZOB 3.375GM 100 ML IV SCH ×5 (00:02→23:50)
[2021-11-20] MEDS: HYDROmorphone HCL 2 MG/ML VL/or syr IV PRN ×4 (03:48→20:09)
[2021-11-20 05:00] VITALS: BP 127/84
[2021-11-20] MEDS: VANCOMYCIN 1GM/250ML 250 ML IV SCH ×2 (05:12→18:00)
[2021-11-20] MEDS: metroNIDAZOLE 500MG/100ML 100 ML IV SCH ×3 (05:12→23:48)
[2021-11-20] MEDS: InsuLIN REG 1unit/0.01ml Soln (100units/ml) SC SCH ×5 (06:12→22:42)
[2021-11-20 08:12] LABS: Hematocrit 23.4 % (41.0-53.0); Hemoglobin 7.9 g/dL (13.5-17.5); Mean Corpuscular Hemoglobin 31.4 pg (28.0-32.0); Mean Corpuscular Hgb Conc. 33.9 g/dL (32.0-36.0); Mean Corpuscular Volume 92.8 fL (80.0-100.0); Red Blood Cells 2.52 10^6/uL (4.5-5.90)
[2021-11-20 08:23] LABS: Band Neutrophils % (manual) 0; Basophils % (manual) 0 (0.0-2.0); Blast Cells 0; Metamyelocytes % 0; Myelocytes % 0; Promyelocytes % 0; Reactive Lymphocytes 0; Red Cell Distribution Width 20.8 % (11.8-14.3)
[2021-11-20 08:32] LABS: Albumin 1.5 g/dL (3.4-5.0); BUN/Creatinine Ratio 57.6; Bilirubin, Total 0.6 mg/dL (0.2-1.0); Calcium 7.7 mg/dL (8.5-10.1); Magnesium 2.4 mg/dL (1.6-2.6); Phosphorus 2.8 mg/dL (2.5-4.90); Total Protein 4.3 g/dL (6.4-8.2)
[2021-11-20 08:43] LABS: Eosinophils % (manual) 1 (0-7); Lymphocytes % (manual) 3 (10.0-50.0); Monocytes % (manual) 1 (0-12)
[2021-11-20 09:00] VITALS: BP 108/78
[2021-11-20] MEDS: LACTULOSE 20Gm/30ML SOLN PO SCH ×2 (10:00→22:00)
[2021-11-20] MEDS: DOCUSATE SOD 100 MG CAP PO SCH ×2 (10:00→22:00)
[2021-11-20] MEDS: SODIUM CHLOR 0.9% PF (SALINE LOCK) 10ML VIAL/SYR IV SCH ×2 (10:17→23:48)
[2021-11-20] MEDS: PANTOPRAZOLE 40 MG/10 ML VIAL INJ IV SCH (10:17)
[2021-11-20] MEDS: MORPHINE SULF 30 mg ER tab PO SCH ×2 (10:17→22:42)
[2021-11-20 13:00] VITALS: BP 133/85
[2021-11-20 17:00] VITALS: BP 108/71
[2021-11-20] MEDS ORDERED: TPN PER PHARMACY IV NR ×9 (20:00)
[2021-11-20 22:00] VITALS: BP 114/69
[2021-11-21] MEDS: HYDROmorphone HCL 2 MG/ML VL/or syr IV PRN ×5 (02:14→21:18)
[2021-11-21 05:00] VITALS: BP 128/80
[2021-11-21] MEDS: VANCOMYCIN 1GM/250ML 250 ML IV SCH ×2 (05:22→18:00)
[2021-11-21] MEDS: InsuLIN REG 1unit/0.01ml Soln (100units/ml) SC SCH ×3 (05:23→18:00)
[2021-11-21] MEDS: ACCU-CHEK COMFORT CURVE STRIP VI SCH ×4 (05:23→23:49)
[2021-11-21] MEDS: PIPERACILLIN-TAZOB 3.375GM 100 ML IV SCH ×4 (05:25→23:49)
[2021-11-21] MEDS: metroNIDAZOLE 500MG/100ML 100 ML IV SCH ×3 (05:28→21:17)
[2021-11-21 06:21] LABS: Hematocrit 22.4 % (41.0-53.0); Hemoglobin 7.9 g/dL (13.5-17.5); Mean Corpuscular Hemoglobin 32.6 pg (28.0-32.0); Mean Corpuscular Hgb Conc. 35.2 g/dL (32.0-36.0); Mean Corpuscular Volume 92.5 fL (80.0-100.0); Red Blood Cells 2.42 10^6/uL (4.5-5.90); White Blood Cell 17.3 10^3/uL (4.4-10.8)
[2021-11-21 06:29] LABS: Albumin 1.5 g/dL (3.4-5.0); Magnesium 2.3 mg/dL (1.6-2.6)
[2021-11-21 06:50] LABS: BUN/Creatinine Ratio 48.8; Bilirubin, Total 0.6 mg/dL (0.2-1.0); Phosphorus 3.2 mg/dL (2.5-4.90); Total Protein 4.2 g/dL (6.4-8.2)
[2021-11-21 07:24] LABS: Red Cell Distribution Width 20.5 % (11.8-14.3)
[2021-11-21 07:27] LABS: Band Neutrophils % (manual) 0; Basophils % (manual) 0 (0.0-2.0); Blast Cells 0; Metamyelocytes % 0; Myelocytes % 0; Promyelocytes % 0; Reactive Lymphocytes 0
[2021-11-21 09:00] VITALS: BP 113/63
[2021-11-21] MEDS: MORPHINE SULF 30 mg ER tab PO SCH ×2 (11:03→22:32)
[2021-11-21] MEDS: DOCUSATE SOD 100 MG CAP PO SCH ×2 (11:03→21:18)
[2021-11-21] MEDS: SODIUM CHLOR 0.9% PF (SALINE LOCK) 10ML VIAL/SYR IV SCH ×2 (11:04→21:18)
[2021-11-21] MEDS: LACTULOSE 20Gm/30ML SOLN PO SCH ×2 (11:04→21:18)
[2021-11-21] MEDS: PANTOPRAZOLE 40 MG/10 ML VIAL INJ IV SCH (11:04)
[2021-11-21 13:00] VITALS: BP 162/80
[2021-11-21 17:00] VITALS: BP 164/87
[2021-11-21] MEDS: ONDANSETRON HCL 4 MG/2 ML VIAL IV PRN (17:06)
[2021-11-21 19:19] LABS: Eosinophils % (manual) 1 (0-7); Lymphocytes % (manual) 1 (10.0-50.0); Monocytes % (manual) 9 (0-12)
[2021-11-21] MEDS ORDERED: TPN PER PHARMACY IV NR ×9 (20:00)
[2021-11-21 22:00] VITALS: BP 106/62
[2021-11-22] MEDS: ONDANSETRON HCL 4 MG/2 ML VIAL IV PRN ×6 (01:18→22:19)
[2021-11-22] MEDS: HYDROmorphone HCL 2 MG/ML VL/or syr IV PRN ×6 (01:18→22:20)
[2021-11-22 05:00] VITALS: BP 127/50
[2021-11-22] MEDS: metroNIDAZOLE 500MG/100ML 100 ML IV SCH ×2 (05:02→17:43)
[2021-11-22] MEDS: ACCU-CHEK COMFORT CURVE STRIP VI SCH ×3 (05:02→18:13)
[2021-11-22] MEDS: InsuLIN REG 1unit/0.01ml Soln (100units/ml) SC SCH ×4 (05:10→18:00)
[2021-11-22] MEDS: PIPERACILLIN-TAZOB 3.375GM 100 ML IV SCH ×4 (05:43→20:57)
[2021-11-22] MEDS: VANCOMYCIN 1GM/250ML 250 ML IV SCH ×2 (05:45→19:01)
[2021-11-22 09:34] LABS: Basophils # (auto) 0 10 ^3/uL (0-0.2); Basophils % (auto) 0.2 % (0.0-2.0)
[2021-11-22 09:36] LABS: Eosinophils # (auto) 0.2 10 ^3/uL (0-0.8); Eosinophils % (auto) 1.1 % (0.0-7.0); Hematocrit 24.4 % (41.0-53.0); Lymphocytes % (auto) 4.5 % (10.0-50.0); Mean Corpuscular Hemoglobin 31.2 pg (28.0-32.0); Mean Corpuscular Hgb Conc. 32.9 g/dL (32.0-36.0); Mean Corpuscular Volume 94.8 fL (80.0-100.0); Monocytes # (auto) 1.3 10 ^3/uL (0-1.3); Monocytes % (auto) 5.9 % (0.0-12.0); Neutrophils % (auto) 88.3 % (37.0-80.0); Red Blood Cells 2.57 10^6/uL (4.5-5.90); White Blood Cell 21.6 10^3/uL (4.4-10.8)
[2021-11-22 09:37] LABS: Red Cell Distribution Width 20.4 % (11.8-14.3)
[2021-11-22] MEDS: PANTOPRAZOLE 40 MG/10 ML VIAL INJ IV SCH (09:37)
[2021-11-22] MEDS: SODIUM CHLOR 0.9% PF (SALINE LOCK) 10ML VIAL/SYR IV SCH ×2 (09:38→22:45)
[2021-11-22 09:56] LABS: Albumin 1.5 g/dL (3.4-5.0); Calcium 7.8 mg/dL (8.5-10.1); Magnesium 2.4 mg/dL (1.6-2.6); Potassium 4.1 mmol/L (3.5-5.1)
[2021-11-22 10:12] LABS: BUN/Creatinine Ratio 45.2; Bilirubin, Total 0.8 mg/dL (0.2-1.0); Phosphorus 2.8 mg/dL (2.5-4.90); Total Protein 4.4 g/dL (6.4-8.2)
[2021-11-22] MEDS ORDERED: IOHEXOL 300 MG/ML 100ML BOTTLE IJ ONE (10:18)
[2021-11-22] MEDS ORDERED: SODIUM PHOSPHATES 40 MEQ in D5W 5% 250 ML IV ONE (11:00)
[2021-11-22 13:00] VITALS: BP 120/80
[2021-11-22 16:33] VITALS: BP 120/65
[2021-11-22] MEDS ORDERED: TPN PER PHARMACY IV NR ×9 (20:00)
[2021-11-22 22:00] VITALS: BP 102/64
[2021-11-23] MEDS: metroNIDAZOLE 500MG/100ML 100 ML IV SCH ×3 (01:10→20:52)
[2021-11-23] MEDS: ACCU-CHEK COMFORT CURVE STRIP VI SCH ×5 (01:11→23:57)
[2021-11-23] MEDS: HYDROmorphone HCL 2 MG/ML VL/or syr IV PRN ×5 (02:56→20:39)
[2021-11-23] MEDS: ONDANSETRON HCL 4 MG/2 ML VIAL IV PRN ×5 (02:57→20:39)
[2021-11-23] MEDS: PIPERACILLIN-TAZOB 3.375GM 100 ML IV SCH ×4 (03:11→22:23)
[2021-11-23] MEDS: InsuLIN REG 1unit/0.01ml Soln (100units/ml) SC SCH ×5 (05:39→23:57)
[2021-11-23 06:04] LABS: Eosinophils # (auto) 0.2 10 ^3/uL (0-0.8); Eosinophils % (auto) 1.1 % (0.0-7.0); Hemoglobin 7.5 g/dL (13.5-17.5); White Blood Cell 15.5 10^3/uL (4.4-10.8)
[2021-11-23 06:09] LABS: Basophils # (auto) 0 10 ^3/uL (0-0.2); Basophils % (auto) 0.3 % (0.0-2.0); Hematocrit 21.7 % (41.0-53.0); Lymphocytes # (auto) 0.7 10 ^3/uL (0.4-5.4); Lymphocytes % (auto) 4.6 % (10.0-50.0); Mean Corpuscular Hgb Conc. 34.6 g/dL (32.0-36.0); Mean Corpuscular Volume 92.5 fL (80.0-100.0); Monocytes % (auto) 6.3 % (0.0-12.0); Neutrophils # (auto) 13.6 10 ^3/uL (1.6-8.6); Neutrophils % (auto) 87.7 % (37.0-80.0); Nucleated Red Blood Cells % 0.1 %; Red Blood Cells 2.35 10^6/uL (4.5-5.90)
[2021-11-23 06:20] LABS: Red Cell Distribution Width 20.6 % (11.8-14.3)
[2021-11-23 06:28] LABS: Albumin 1.4 g/dL (3.4-5.0); Calcium 7.8 mg/dL (8.5-10.1); Magnesium 2.3 mg/dL (1.6-2.6); Potassium 3.9 mmol/L (3.5-5.1)
[2021-11-23 06:30] LABS: BUN/Creatinine Ratio 40.9
[2021-11-23 06:33] LABS: Bilirubin, Total 0.8 mg/dL (0.2-1.0); Phosphorus 3.2 mg/dL (2.5-4.90); Total Protein 4.2 g/dL (6.4-8.2)
[2021-11-23] MEDS: VANCOMYCIN 1GM/250ML 250 ML IV SCH ×2 (07:08→19:52)
[2021-11-23 08:51] VITALS: BP 115/71
[2021-11-23] MEDS: PANTOPRAZOLE 40 MG/10 ML VIAL INJ IV SCH (09:11)
[2021-11-23] MEDS: SODIUM CHLOR 0.9% PF (SALINE LOCK) 10ML VIAL/SYR IV SCH ×2 (09:16→22:24)
[2021-11-23 12:51] VITALS: BP 110/60
[2021-11-23 14:01] LABS: INR 1.21 (0.9-1.15); Partial Thromboplastin Time 27.9 sec (23.6-33.0)
[2021-11-23 16:52] VITALS: BP 106/66
[2021-11-23] MEDS ORDERED: TPN PER PHARMACY IV NR ×9 (20:00)
[2021-11-23 22:00] VITALS: BP 120/71
[2021-11-24] VITALS (13 sets, daily range): BP systolic 98–120; BP diastolic 54–73
[2021-11-24] MEDS: ONDANSETRON HCL 4 MG/2 ML VIAL IV PRN ×6 (00:25→22:48)
[2021-11-24] MEDS: HYDROmorphone HCL 2 MG/ML VL/or syr IV PRN ×6 (00:25→22:48)
[2021-11-24] MEDS: metroNIDAZOLE 500MG/100ML 100 ML IV SCH ×3 (03:33→19:48)
[2021-11-24] MEDS: PIPERACILLIN-TAZOB 3.375GM 100 ML IV SCH ×4 (04:29→21:00)
[2021-11-24] MEDS: ACCU-CHEK COMFORT CURVE STRIP VI SCH ×3 (05:46→18:15)
[2021-11-24] MEDS: InsuLIN REG 1unit/0.01ml Soln (100units/ml) SC SCH ×3 (05:47→18:00)
[2021-11-24 06:22] LABS: Potassium 3.9 mmol/L (3.5-5.1)
[2021-11-24 06:25] LABS: INR 1.2 (0.9-1.15); Partial Thromboplastin Time 34.2 sec (23.6-33.0)
[2021-11-24 06:28] LABS: Basophils # (auto) 0 10 ^3/uL (0-0.2); Eosinophils # (auto) 0.1 10 ^3/uL (0-0.8); Lymphocytes # (auto) 0.6 10 ^3/uL (0.4-5.4); Monocytes # (auto) 0.8 10 ^3/uL (0-1.3); Monocytes % (auto) 6.9 % (0.0-12.0)
[2021-11-24 06:30] LABS: Basophils % (auto) 0.1 % (0.0-2.0); Eosinophils % (auto) 0.9 % (0.0-7.0); Hematocrit 20.4 % (41.0-53.0); Lymphocytes % (auto) 4.9 % (10.0-50.0); Mean Corpuscular Hemoglobin 32.2 pg (28.0-32.0); Mean Corpuscular Hgb Conc. 34.4 g/dL (32.0-36.0); Mean Corpuscular Volume 93.7 fL (80.0-100.0); Neutrophils # (auto) 10.3 10 ^3/uL (1.6-8.6); Neutrophils % (auto) 87.2 % (37.0-80.0); Red Blood Cells 2.18 10^6/uL (4.5-5.90); White Blood Cell 11.8 10^3/uL (4.4-10.8)
[2021-11-24 06:45] LABS: Red Cell Distribution Width 20.9 % (11.8-14.3)
[2021-11-24 06:48] LABS: Albumin 1.5 g/dL (3.4-5.0); Bilirubin, Total 0.8 mg/dL (0.2-1.0); Calcium 7.7 mg/dL (8.5-10.1); Magnesium 2.1 mg/dL (1.6-2.6); Phosphorus 2.9 mg/dL (2.5-4.90); Total Protein 4.2 g/dL (6.4-8.2)
[2021-11-24] MEDS ORDERED: LIDOCAINE 2%HCL (LOCAL ANESTH.) INJ 10ml MDV ONE (07:15)
[2021-11-24] MEDS: VANCOMYCIN 1GM/250ML 250 ML IV SCH ×2 (07:42→17:50)
[2021-11-24] MEDS: PANTOPRAZOLE 40 MG/10 ML VIAL INJ IV SCH (09:10)
[2021-11-24] MEDS: SODIUM CHLOR 0.9% PF (SALINE LOCK) 10ML VIAL/SYR IV SCH ×2 (09:11→22:48)
[2021-11-24] MEDS ORDERED: SODIUM PHOSPHATES 40 MEQ in D5W 5% 250 ML IV ONE (11:00)
[2021-11-24] MEDS: fentaNYL CITRATE 100 MCG/2 ML VL IV ONE ×2 (12:45→13:30)
[2021-11-24] MEDS: MIDAZOLAM HCL 2MG/2ML 2ml VIAL (1mg/ml) IV ONE ×2 (12:45→13:30)
[2021-11-24] MEDS ORDERED: MIDAZOLAM HCL 2MG/2ML 2ml VIAL (1mg/ml) ONE (12:57)
[2021-11-24] MEDS: fentaNYL CITRATE 100 MCG/2 ML VL ONE ×2 (12:58→13:15)
[2021-11-24] MEDS ORDERED: CATHFLO ACTIVASE (ALTEPLASE) 2 MG VIAL IV ONE ×2 (14:00→14:15)
[2021-11-24] MEDS ORDERED: TPN PER PHARMACY IV NR ×9 (20:00)
[2021-11-25] VITALS (7 sets, daily range): BP systolic 103–126; BP diastolic 68–74
[2021-11-25] MEDS: ACCU-CHEK COMFORT CURVE STRIP VI SCH ×5 (00:05→23:58)
[2021-11-25] MEDS: PIPERACILLIN-TAZOB 3.375GM 100 ML IV SCH ×5 (02:57→23:49)
[2021-11-25] MEDS: HYDROmorphone HCL 2 MG/ML VL/or syr IV PRN ×6 (02:58→22:29)
[2021-11-25] MEDS: ONDANSETRON HCL 4 MG/2 ML VIAL IV PRN ×4 (02:59→11:10)
[2021-11-25] MEDS: metroNIDAZOLE 500MG/100ML 100 ML IV SCH ×3 (04:12→22:08)
[2021-11-25] MEDS: VANCOMYCIN 1GM/250ML 250 ML IV SCH ×2 (05:59→20:25)
[2021-11-25] MEDS: InsuLIN REG 1unit/0.01ml Soln (100units/ml) SC SCH ×5 (06:00→23:57)
[2021-11-25 06:01] LABS: Basophils # (auto) 0 10 ^3/uL (0-0.2); Basophils % (auto) 0.3 % (0.0-2.0); Eosinophils # (auto) 1.5 10 ^3/uL (0-0.8); Eosinophils % (auto) 12.4 % (0.0-7.0); Hematocrit 23.6 % (41.0-53.0); Hemoglobin 8.3 g/dL (13.5-17.5); Lymphocytes # (auto) 0.8 10 ^3/uL (0.4-5.4); Lymphocytes % (auto) 6.7 % (10.0-50.0); Mean Corpuscular Hgb Conc. 35.3 g/dL (32.0-36.0); Mean Corpuscular Volume 90.5 fL (80.0-100.0); Monocytes # (auto) 0.9 10 ^3/uL (0-1.3); Monocytes % (auto) 7.5 % (0.0-12.0); Neutrophils # (auto) 8.6 10 ^3/uL (1.6-8.6); Neutrophils % (auto) 73.1 % (37.0-80.0); White Blood Cell 11.7 10^3/uL (4.4-10.8)
[2021-11-25 06:11] LABS: Albumin 1.5 g/dL (3.4-5.0); Calcium 7.5 mg/dL (8.5-10.1); Magnesium 2.3 mg/dL (1.6-2.6); Phosphorus 3.1 mg/dL (2.5-4.90); Potassium 3.8 mmol/L (3.5-5.1)
[2021-11-25 06:14] LABS: Bilirubin, Total 1.2 mg/dL (0.2-1.0); Total Protein 4.2 g/dL (6.4-8.2)
[2021-11-25 06:29] LABS: Red Cell Distribution Width 20.5 % (11.8-14.3)
[2021-11-25] MEDS: PANTOPRAZOLE 40 MG/10 ML VIAL INJ IV SCH (09:42)
[2021-11-25] MEDS: SODIUM CHLOR 0.9% PF (SALINE LOCK) 10ML VIAL/SYR IV SCH ×2 (09:42→21:56)
[2021-11-25] MEDS ORDERED: TPN PER PHARMACY IV NR ×9 (20:00)
[2021-11-26] MEDS: HYDROmorphone HCL 2 MG/ML VL/or syr IV PRN ×5 (02:36→20:27)
[2021-11-26] MEDS: PIPERACILLIN-TAZOB 3.375GM 100 ML IV SCH ×4 (04:17→21:10)
[2021-11-26 05:00] VITALS: BP 100/67
[2021-11-26] MEDS: InsuLIN REG 1unit/0.01ml Soln (100units/ml) SC SCH ×3 (06:00→17:35)
[2021-11-26] MEDS: ACCU-CHEK COMFORT CURVE STRIP VI SCH ×3 (06:22→17:34)
[2021-11-26] MEDS: metroNIDAZOLE 500MG/100ML 100 ML IV SCH ×3 (06:23→19:39)
[2021-11-26 06:24] LABS: Basophils # (auto) 0 10 ^3/uL (0-0.2); Basophils % (auto) 0.2 % (0.0-2.0); Eosinophils # (auto) 1.1 10 ^3/uL (0-0.8); Eosinophils % (auto) 9.8 % (0.0-7.0); Hematocrit 27.1 % (41.0-53.0); Hemoglobin 8.9 g/dL (13.5-17.5); Lymphocytes # (auto) 0.9 10 ^3/uL (0.4-5.4); Lymphocytes % (auto) 7.7 % (10.0-50.0); Mean Corpuscular Hemoglobin 30.7 pg (28.0-32.0); Mean Corpuscular Hgb Conc. 32.9 g/dL (32.0-36.0); Mean Corpuscular Volume 93.2 fL (80.0-100.0); Monocytes # (auto) 0.9 10 ^3/uL (0-1.3); Monocytes % (auto) 8.3 % (0.0-12.0); Neutrophils # (auto) 8.2 10 ^3/uL (1.6-8.6); Nucleated Red Blood Cells % 0.1 %; Red Blood Cells 2.91 10^6/uL (4.5-5.90); White Blood Cell 11.1 10^3/uL (4.4-10.8)
[2021-11-26 06:27] LABS: Red Cell Distribution Width 20.6 % (11.8-14.3)
[2021-11-26 06:31] LABS: Potassium 3.9 mmol/L (3.5-5.1)
[2021-11-26 06:41] LABS: Albumin 1.6 g/dL (3.4-5.0); BUN/Creatinine Ratio 38.6; Calcium 7.8 mg/dL (8.5-10.1); Magnesium 2.3 mg/dL (1.6-2.6)
[2021-11-26 07:00] LABS: Phosphorus 2.7 mg/dL (2.5-4.90); Total Protein 4.3 g/dL (6.4-8.2)
[2021-11-26] MEDS: VANCOMYCIN 1GM/250ML 250 ML IV SCH ×2 (08:43→17:34)
[2021-11-26 09:00] VITALS: BP 107/66
[2021-11-26] MEDS: PANTOPRAZOLE 40 MG/10 ML VIAL INJ IV SCH (09:37)
[2021-11-26] MEDS: SODIUM CHLOR 0.9% PF (SALINE LOCK) 10ML VIAL/SYR IV SCH ×2 (09:37→22:39)
[2021-11-26 13:00] VITALS: BP 119/75
[2021-11-26] MEDS ORDERED: MORPHINE SULF 15mg ER tab PO ONE (13:00)
[2021-11-26 17:00] VITALS: BP 108/73
[2021-11-26] MEDS ORDERED: TPN PER PHARMACY IV NR ×9 (20:00)
[2021-11-26] MEDS: MORPHINE SULF 15mg ER tab PO SCH (22:39)
[2021-11-27] MEDS: ACCU-CHEK COMFORT CURVE STRIP VI SCH ×2 (00:05→05:52)
[2021-11-27] MEDS: HYDROmorphone HCL 2 MG/ML VL/or syr IV PRN ×6 (00:45→22:57)
[2021-11-27] MEDS: PIPERACILLIN-TAZOB 3.375GM 100 ML IV SCH ×4 (03:03→17:16)
[2021-11-27] MEDS: metroNIDAZOLE 500MG/100ML 100 ML IV SCH ×3 (04:27→20:10)
[2021-11-27 05:00] VITALS: BP 102/67
[2021-11-27] MEDS: VANCOMYCIN 1GM/250ML 250 ML IV SCH ×2 (05:51→18:00)
[2021-11-27] MEDS: InsuLIN REG 1unit/0.01ml Soln (100units/ml) SC SCH ×2 (05:52)
[2021-11-27 06:07] LABS: Potassium 3.8 mmol/L (3.5-5.1)
[2021-11-27 06:23] LABS: Albumin 1.5 g/dL (3.4-5.0); BUN/Creatinine Ratio 39.1; Bilirubin, Total 0.8 mg/dL (0.2-1.0); Calcium 7.5 mg/dL (8.5-10.1); Phosphorus 2.9 mg/dL (2.5-4.90); Total Protein 4.1 g/dL (6.4-8.2)
[2021-11-27 09:00] VITALS: BP 108/69
[2021-11-27] MEDS: SODIUM CHLOR 0.9% PF (SALINE LOCK) 10ML VIAL/SYR IV SCH ×2 (09:09→21:42)
[2021-11-27] MEDS: PANTOPRAZOLE 40 MG/10 ML VIAL INJ IV SCH (09:09)
[2021-11-27] MEDS: MORPHINE SULF 15mg ER tab PO SCH ×2 (10:15→21:43)
[2021-11-27] MEDS ORDERED: PARoxetine 20 MG TAB PO ONE (12:00)
[2021-11-27 13:00] VITALS: BP 108/68
[2021-11-27 17:00] VITALS: BP 98/55
[2021-11-27] MEDS ORDERED: TPN PER PHARMACY IV NR ×18 (20:00)
[2021-11-27 23:29] VITALS: BP 115/69
[2021-11-28] MEDS: PIPERACILLIN-TAZOB 3.375GM 100 ML IV SCH ×4 (02:47→20:12)
[2021-11-28] MEDS: HYDROmorphone HCL 2 MG/ML VL/or syr IV PRN ×4 (02:48→18:24)
[2021-11-28] MEDS: metroNIDAZOLE 500MG/100ML 100 ML IV SCH ×3 (03:54→20:11)
[2021-11-28] MEDS: VANCOMYCIN 1GM/250ML 250 ML IV SCH ×2 (05:39→18:23)
[2021-11-28 05:56] VITALS: BP 107/68
[2021-11-28 09:00] VITALS: BP 104/60
[2021-11-28] MEDS ORDERED: PARoxetine 20 MG TAB PO SCH (10:00)
[2021-11-28] MEDS: PANTOPRAZOLE 40 MG/10 ML VIAL INJ IV SCH (10:15)
[2021-11-28] MEDS: SODIUM CHLOR 0.9% PF (SALINE LOCK) 10ML VIAL/SYR IV SCH ×2 (10:15→22:20)
[2021-11-28] MEDS: MORPHINE SULF 15mg ER tab PO SCH (10:15)
[2021-11-28 13:00] VITALS: BP 146/86
[2021-11-28] MEDS ORDERED: fentaNYL 25MCG/HR 25 MCG/HR PAT TD SCH (16:00)
[2021-11-28 17:00] VITALS: BP 137/75
[2021-11-28 22:00] VITALS: BP 112/76
[2021-11-29] MEDS: PIPERACILLIN-TAZOB 3.375GM 100 ML IV SCH ×4 (02:12→21:23)
[2021-11-29] MEDS: metroNIDAZOLE 500MG/100ML 100 ML IV SCH (03:34)
[2021-11-29] MEDS: HYDROmorphone HCL 2 MG/ML VL/or syr IV PRN ×5 (03:34→21:25)
[2021-11-29] MEDS: ONDANSETRON HCL 4 MG/2 ML VIAL IV PRN ×2 (03:51→21:47)
[2021-11-29 05:00] VITALS: BP 103/67
[2021-11-29] MEDS: VANCOMYCIN 1GM/250ML 250 ML IV SCH ×2 (05:26→18:29)
[2021-11-29 09:00] VITALS: BP 116/77
[2021-11-29] MEDS: PANTOPRAZOLE 40 MG/10 ML VIAL INJ IV SCH (09:03)
[2021-11-29 09:10] LABS: Eosinophils # (auto) 1.3 10 ^3/uL (0-0.8); Hemoglobin 8.2 g/dL (13.5-17.5); Monocytes # (auto) 0.7 10 ^3/uL (0-1.3); Neutrophils # (auto) 8.8 10 ^3/uL (1.6-8.6); Red Blood Cells 2.57 10^6/uL (4.5-5.90)
[2021-11-29 09:12] LABS: Basophils # (auto) 0 10 ^3/uL (0-0.2); Basophils % (auto) 0.3 % (0.0-2.0); Eosinophils % (auto) 11.1 % (0.0-7.0); Hematocrit 24.1 % (41.0-53.0); Lymphocytes # (auto) 0.9 10 ^3/uL (0.4-5.4); Lymphocytes % (auto) 7.3 % (10.0-50.0); Mean Corpuscular Volume 93.7 fL (80.0-100.0); Monocytes % (auto) 5.8 % (0.0-12.0); Neutrophils % (auto) 75.5 % (37.0-80.0); White Blood Cell 11.7 10^3/uL (4.4-10.8)
[2021-11-29 09:14] LABS: Mean Corpuscular Hgb Conc. 34.1 g/dL (32.0-36.0); Red Cell Distribution Width 23.3 % (11.8-14.3)
[2021-11-29] MEDS ORDERED: PARoxetine 20 MG TAB PO SCH (10:00)
[2021-11-29] MEDS: SODIUM CHLOR 0.9% PF (SALINE LOCK) 10ML VIAL/SYR IV SCH ×2 (10:00→21:23)
[2021-11-29] MEDS ORDERED: DULoxetine HCL 30 MG CAP PO ONE (12:00)
[2021-11-29] MEDS: Ensure HIGH Protein Chocolate 8oz Bottle PO SCH ×2 (12:00→18:29)
[2021-11-29 13:00] VITALS: BP 136/81
[2021-11-29] MEDS: metroNIDAZOLE 500 MG TAB PO SCH ×2 (16:46→21:24)
[2021-11-29 17:00] VITALS: BP 107/71
[2021-11-29] MEDS: DULoxetine HCL 30 MG CAP PO SCH (21:23)
[2021-11-29] MEDS: traZODone HCL 50 MG TAB PO SCH (21:24)
[2021-11-29 22:00] VITALS: BP 102/70
[2021-11-30] MEDS: PIPERACILLIN-TAZOB 3.375GM 100 ML IV SCH ×2 (05:07→09:08)
[2021-11-30] MEDS: VANCOMYCIN 1GM/250ML 250 ML IV SCH ×2 (07:04→18:45)
[2021-11-30] MEDS: metroNIDAZOLE 500 MG TAB PO SCH ×3 (07:04→21:31)
[2021-11-30] MEDS: ONDANSETRON HCL 4 MG/2 ML VIAL IV PRN ×3 (07:23→21:01)
[2021-11-30 09:00] VITALS: BP 110/55
[2021-11-30] MEDS: Ensure HIGH Protein Chocolate 8oz Bottle PO SCH ×3 (09:06→18:46)
[2021-11-30] MEDS: HYDROmorphone HCL 2 MG/ML VL/or syr IV PRN ×3 (09:07→20:51)
[2021-11-30] MEDS: PANTOPRAZOLE 40 MG/10 ML VIAL INJ IV SCH (09:08)
[2021-11-30] MEDS: DULoxetine HCL 30 MG CAP PO SCH ×2 (09:08→21:31)
[2021-11-30] MEDS: SODIUM CHLOR 0.9% PF (SALINE LOCK) 10ML VIAL/SYR IV SCH ×2 (09:09→21:30)
[2021-11-30 13:00] VITALS: BP 103/67
[2021-11-30] MEDS: levoFLOXacin 500MG 100 ML IV SCH (16:24)
[2021-11-30 19:11] LABS: BUN/Creatinine Ratio 22.9; Calcium 7.5 mg/dL (8.5-10.1); Potassium 3.2 mmol/L (3.5-5.1)
[2021-11-30 19:30] LABS: Hematocrit 24.4 % (41.0-53.0); Mean Corpuscular Hemoglobin 31.1 pg (28.0-32.0); Mean Corpuscular Volume 94.2 fL (80.0-100.0); Red Blood Cells 2.59 10^6/uL (4.5-5.90); White Blood Cell 10.6 10^3/uL (4.4-10.8)
[2021-11-30 19:37] LABS: Red Cell Distribution Width 23.2 % (11.8-14.3)
[2021-11-30 19:39] LABS: Band Neutrophils % (manual) 0; Basophils % (manual) 0 (0.0-2.0); Blast Cells 0; Metamyelocytes % 0; Myelocytes % 0; Promyelocytes % 0; Reactive Lymphocytes 0
[2021-11-30 20:04] LABS: Eosinophils % (manual) 1 (0-7); Lymphocytes % (manual) 7 (10.0-50.0); Monocytes % (manual) 5 (0-12)
[2021-11-30] MEDS: traZODone HCL 50 MG TAB PO SCH (21:31)
[2021-11-30 22:00] VITALS: BP 103/66
[2021-12-01] MEDS: HYDROmorphone HCL 2 MG/ML VL/or syr IV PRN ×3 (02:09→13:10)
[2021-12-01] MEDS: ONDANSETRON HCL 4 MG/2 ML VIAL IV PRN (02:09)
[2021-12-01 05:00] VITALS: BP 99/66
[2021-12-01] MEDS: VANCOMYCIN 1GM/250ML 250 ML IV SCH ×2 (06:34→16:49)
[2021-12-01] MEDS: metroNIDAZOLE 500 MG TAB PO SCH ×3 (06:35→21:49)
[2021-12-01] MEDS: Ensure HIGH Protein Chocolate 8oz Bottle PO SCH ×3 (08:00→18:10)
[2021-12-01 09:00] VITALS: BP 138/79
[2021-12-01] MEDS: SODIUM CHLOR 0.9% PF (SALINE LOCK) 10ML VIAL/SYR IV SCH ×2 (09:22→21:48)
[2021-12-01] MEDS: PANTOPRAZOLE 40 MG TAB PO SCH (09:23)
[2021-12-01] MEDS: DULoxetine HCL 30 MG CAP PO SCH ×2 (09:23→21:48)
[2021-12-01 10:31] LABS: Hematocrit 25.8 % (41.0-53.0); Hemoglobin 8.7 g/dL (13.5-17.5); Mean Corpuscular Hemoglobin 32.2 pg (28.0-32.0); Mean Corpuscular Hgb Conc. 33.7 g/dL (32.0-36.0); Mean Corpuscular Volume 95.5 fL (80.0-100.0); White Blood Cell 10.6 10^3/uL (4.4-10.8)
[2021-12-01 10:50] LABS: BUN/Creatinine Ratio 20.8; Calcium 7.8 mg/dL (8.5-10.1); Potassium 3.2 mmol/L (3.5-5.1)
[2021-12-01 11:08] LABS: Red Cell Distribution Width 23.6 % (11.8-14.3)
[2021-12-01 11:09] LABS: Band Neutrophils % (manual) 0; Basophils % (manual) 0 (0.0-2.0); Blast Cells 0; Eosinophils % (manual) 0 (0-7); Metamyelocytes % 0; Myelocytes % 0; Promyelocytes % 0; Reactive Lymphocytes 0
[2021-12-01 11:43] LABS: Lymphocytes % (manual) 3 (10.0-50.0); Monocytes % (manual) 7 (0-12)
[2021-12-01 13:00] VITALS: BP 122/70
[2021-12-01] MEDS: levoFLOXacin 500MG 100 ML IV SCH (13:00)
[2021-12-01] MEDS ORDERED: fentaNYL 50MCG/HR 50 MCG/HR PAT TD SCH (13:45)
[2021-12-01 17:00] VITALS: BP 106/64
[2021-12-01] MEDS: traZODone HCL 50 MG TAB PO SCH (21:49)
[2021-12-01 22:00] VITALS: BP 115/65
[2021-12-02] MEDS: HYDROmorphone HCL 2 MG/ML VL/or syr IV PRN ×2 (01:33→10:03)
[2021-12-02] MEDS: VANCOMYCIN 1GM/250ML 250 ML IV SCH (06:05)
[2021-12-02] MEDS: metroNIDAZOLE 500 MG TAB PO SCH ×3 (06:06→22:01)
[2021-12-02] MEDS: Ensure HIGH Protein Chocolate 8oz Bottle PO SCH ×3 (08:00→18:19)
[2021-12-02 09:00] VITALS: BP 116/74
[2021-12-02] MEDS: SODIUM CHLOR 0.9% PF (SALINE LOCK) 10ML VIAL/SYR IV SCH ×2 (09:50→22:00)
[2021-12-02] MEDS: DULoxetine HCL 30 MG CAP PO SCH ×2 (09:50→22:01)
[2021-12-02] MEDS: PANTOPRAZOLE 40 MG TAB PO SCH (09:51)
[2021-12-02] MEDS: ONDANSETRON HCL 4 MG/2 ML VIAL IV PRN (10:02)
[2021-12-02 13:00] VITALS: BP 122/69
[2021-12-02] MEDS: levoFLOXacin 500MG 100 ML IV SCH (13:35)
[2021-12-02] MEDS: OXYCODONE W/ ACETAMINOPHEN 5/325MG TABLET PO PRN (15:51)
[2021-12-02 17:00] VITALS: BP 135/70
[2021-12-02 22:00] VITALS: BP 124/64
[2021-12-02] MEDS: traZODone HCL 50 MG TAB PO SCH (22:01)
[2021-12-02] MEDS: LINEZOLID 600MG TABLET PO SCH (22:02)
[2021-12-03 05:00] VITALS: BP 121/71
[2021-12-03] MEDS: OXYCODONE W/ ACETAMINOPHEN 5/325MG TABLET PO PRN ×2 (05:51→11:51)
[2021-12-03] MEDS: metroNIDAZOLE 500 MG TAB PO SCH ×2 (06:23→14:41)
[2021-12-03 06:35] LABS: Hematocrit 25.7 % (41.0-53.0); Hemoglobin 8.8 g/dL (13.5-17.5); Mean Corpuscular Hemoglobin 32.5 pg (28.0-32.0); Mean Corpuscular Hgb Conc. 34.2 g/dL (32.0-36.0); Mean Corpuscular Volume 95.1 fL (80.0-100.0); Red Blood Cells 2.71 10^6/uL (4.5-5.90)
[2021-12-03 06:52] LABS: BUN/Creatinine Ratio 16.7; Calcium 8.1 mg/dL (8.5-10.1)
[2021-12-03 07:00] LABS: Red Cell Distribution Width 22.7 % (11.8-14.3)
[2021-12-03 07:02] LABS: Band Neutrophils % (manual) 0; Basophils % (manual) 0 (0.0-2.0); Blast Cells 0; Metamyelocytes % 0; Myelocytes % 0; Promyelocytes % 0; Reactive Lymphocytes 0
[2021-12-03 07:06] LABS: Potassium 2.7 mmol/L (3.5-5.1)
[2021-12-03] MEDS ORDERED: POTASSIUM CHL 20 Meq TABLET PO ONE (07:15)
[2021-12-03] MEDS: Ensure HIGH Protein Chocolate 8oz Bottle PO SCH ×2 (08:02→12:16)
[2021-12-03] MEDS: SODIUM CHLOR 0.9% PF (SALINE LOCK) 10ML VIAL/SYR IV SCH (08:02)
[2021-12-03 09:00] VITALS: BP 157/68
[2021-12-03] MEDS: DULoxetine HCL 30 MG CAP PO SCH (09:32)
[2021-12-03] MEDS: PANTOPRAZOLE 40 MG TAB PO SCH (09:32)
[2021-12-03] MEDS: LINEZOLID 600MG TABLET PO SCH (09:32)
[2021-12-03] MEDS ORDERED: levoFLOXacin 500 MG TAB PO SCH (10:00)
[2021-12-03 12:06] LABS: Eosinophils % (manual) 4 (0-7); Lymphocytes % (manual) 7 (10.0-50.0); Monocytes % (manual) 5 (0-12)
[2021-12-03 12:45] VITALS: BP 122/74
[2021-12-03] MEDS ORDERED: POTASSIUM EFFERVESENT TAB 25 MEQ PO ONE (13:30)
[2021-12-03 17:03] VITALS: BP 130/90
[2021-12-03] MEDS ORDERED: traZODone HCL 50 MG TAB PO SCH (22:00)
== END 2021-12-03 18:01 | DRG 853 ==
LOC: EDBD 15:26 → ER 15:26 → EDUNIT# 15:26 → TELE 23:20 → TELE-EAST 11-07 01:35 → EAST 11-08 22:00 → ICU WEST 11-10 18:57 → TELE-WESTW 11-15 16:54
PROVIDERS: ADMIT Registered Nurse; ATTEND Internal Medicine
PROC: 0W9G3ZZ Drainage of Peritoneal Cavity, Percutaneous Approach (ICD-10-PCS; principal; 2021-11-08)
PROC: 05H933Z Insertion of Infusion Device into Right Brachial Vein, Percutaneous Approach (ICD-10-PCS; 2021-11-08)
PROC: 0W9G3ZZ Drainage of Peritoneal Cavity, Percutaneous Approach (ICD-10-PCS; 2021-11-10)
PROC: 0WBH0ZX Excision of Retroperitoneum, Open Approach, Diagnostic (ICD-10-PCS; 2021-11-10)
PROC: 5A1935Z Respiratory Ventilation, Less than 24 Consecutive Hours (ICD-10-PCS; 2021-11-10)
PROC: 0BH17EZ Insertion of Endotracheal Airway into Trachea, Via Natural or Artificial Opening (ICD-10-PCS; 2021-11-10)
PROC: 30233N1 Transfusion of Nonautologous Red Blood Cells into Peripheral Vein, Percutaneous Approach (ICD-10-PCS; 2021-11-12)
PROC: 0W9G3ZZ Drainage of Peritoneal Cavity, Percutaneous Approach (ICD-10-PCS; 2021-11-24)
DX: A41.9 Sepsis, unspecified organism (principal); K65.9 Peritonitis, unspecified; E43 Unspecified severe protein-calorie malnutrition; K85.90 Acute pancreatitis without necrosis or infection, unspecified; K65.1 Peritoneal abscess; C85.90 Non-Hodgkin lymphoma, unspecified, unspecified site; K57.20 Diverticulitis of large intestine with perforation and abscess without bleeding; R64 Cachexia; K56.609 Unspecified intestinal obstruction, unspecified as to partial versus complete obstruction; R62.7 Adult failure to thrive; K70.31 Alcoholic cirrhosis of liver with ascites; D63.0 Anemia in neoplastic disease; D69.59 Other secondary thrombocytopenia; E83.39 Other disorders of phosphorus metabolism; E87.6 Hypokalemia; Z20.822 Contact with and (suspected) exposure to COVID-19; E88.09 Other disorders of plasma-protein metabolism, not elsewhere classified; F32.A Depression, unspecified; Z74.01 Bed confinement status
CPT/HCPCS: 10005; 36415; 36569; 36600; 71045; 71046; 72192; 74176; 74177; 74250; 74270; 76700; 76942; 77012; 80048; 80053; 80061; 80202; 81001; 82040; 82805; 82962; 83690; 83735; 83880; 84100; 84132; 84443; 84478; 85007; 85025; 85027; 85379; 85610; 85730; 86850; 86900; 86901; 86920; 87040; 87070; 87075; 87081; 87205; 89051; 93005; 93306; 93886; 94002; 94003; 94667; 94668; 96361; 96365; 96375; 97110; 97116; 97530; C9113; G0378; J0696; J1815; J1956; J2001; J2250; J2405; J2543; J2704; J3480; J3490; J7060

== ENCOUNTER 2022-04-01 18:35 | Inpatient (IN) | payer OTHER ==
[~2022-04-01] VITALS: Ht 182.9 cm; Wt 67.0 kg
[~2022-04-01 18:35] MED LIST: FURO40TA4 PO; LEVE750T3 PO; MORP30TA5 PO; ONDA-180 PO; PANT40T PO; PARO-135; TRAZ-184 PO
[2022-04-01 20:32] LABS: Hemoglobin 10.9 g/dL (13.5-17.5)
[2022-04-01 20:35] LABS: Hematocrit 32.7 % (41.0-53.0); Mean Corpuscular Hemoglobin 30.9 pg (28.0-32.0); Mean Corpuscular Hgb Conc. 33.3 g/dL (32.0-36.0); Mean Corpuscular Volume 92.7 fL (80.0-100.0); Red Blood Cells 3.53 10^6/uL (4.5-5.90); Red Cell Distribution Width 16.1 % (11.8-14.3); White Blood Cell 6.6 10^3/uL (4.4-10.8)
[2022-04-01 20:41] LABS: Albumin 2.7 g/dL (3.4-5.0); BUN/Creatinine Ratio 27.8; Calcium 8.1 mg/dL (8.5-10.1); Magnesium 1.8 mg/dL (1.6-2.6); Potassium 3.5 mmol/L (3.5-5.1)
[2022-04-01 20:42] LABS: Band Neutrophils % (manual) 0; Basophils % (manual) 0 (0.0-2.0); Blast Cells 0; Eosinophils % (manual) 0 (0-7); Metamyelocytes % 0; Myelocytes % 0; Promyelocytes % 0; Reactive Lymphocytes 0
[2022-04-01 20:44] LABS: Bilirubin, Total 0.3 mg/dL (0.2-1.0)
[2022-04-01 20:55] LABS: Lymphocytes % (manual) 14 (10.0-50.0); Monocytes % (manual) 8 (0-12)
[2022-04-01] MEDS ORDERED: IOHEXOL 350 MG/ML 100ML IJ ONE (21:15)
[2022-04-01] MEDS ORDERED: ASPirin 325 MG TAB PO ONE (23:15)
[2022-04-01] MEDS ORDERED: ALBUMIN 25% 100 ML IV ONE (23:30)
[2022-04-01] MEDS ORDERED: DOCUSATE SOD 100 MG CAP PO PRN (23:30)
[2022-04-01] MEDS ORDERED: MORPHINE SULFATE INJ 2 MG/ml SYRG IV PRN (23:30)
[2022-04-01] MEDS ORDERED: ACETAMINOPHEN 325 MG TAB PO PRN (23:30)
[2022-04-01] MEDS ORDERED: ONDANSETRON HCL 4 MG/2 ML VIAL IV PRN (23:30)
[2022-04-02] MEDS ORDERED: MORPHINE SULFATE INJ 2 MG/ml SYRG IV PRN
[2022-04-02] MEDS ORDERED: NITROGLYCERIN 0.4 MG SL TAB SL PRN
[2022-04-02 01:26] LABS: Urine Bacteria NONE SEEN /hpf (None Seen); Urine Blood Negative /uL (Negative); Urine Mucus FEW (None Seen); Urine WBC 2 /hpf (0 - 3)
[2022-04-02] MEDS: SODIUM CHLOR 0.9% PF (SALINE LOCK) 10ML VIAL/SYR IV SCH ×3 (06:10→22:00)
[2022-04-02] MEDS ORDERED: ALUM & MAG HYDROX-SIMETH LIQ(MAALOX) 30 ML PO ONE (06:30)
[2022-04-02 06:47] LABS: Hematocrit 30.2 % (41.0-53.0); Hemoglobin 10.2 g/dL (13.5-17.5); Mean Corpuscular Hemoglobin 31.5 pg (28.0-32.0); Mean Corpuscular Hgb Conc. 33.8 g/dL (32.0-36.0); Red Blood Cells 3.24 10^6/uL (4.5-5.90); Red Cell Distribution Width 15.6 % (11.8-14.3); White Blood Cell 7.7 10^3/uL (4.4-10.8)
[2022-04-02 06:56] LABS: Basophils % (manual) 0 (0.0-2.0); Blast Cells 0; Metamyelocytes % 0; Myelocytes % 0; Promyelocytes % 0; Reactive Lymphocytes 0
[2022-04-02 07:00] LABS: Alanine Aminotransferase 31 U/L (16-61); Albumin 2.7 g/dL (3.4-5.0); Anion Gap 9 (5-15); Aspartate Aminotransferase 27 U/L (15-37); BUN/Creatinine Ratio 23.7; Blood Urea Nitrogen 14 mg/dL (7-18); Calcium 7.7 mg/dL (8.5-10.1); Carbon Dioxide 26 mmol/L (21-32); Chloride 106 mmol/L (98-107); GFR African American 173 mL/min; GFR Non-African American 143 mL/min; Glucose 115 mg/dL (74-106); Potassium 3.7 mmol/L (3.5-5.1); Sodium 141 mmol/L (136-145)
[2022-04-02 07:03] LABS: Alkaline Phosphatase 80 U/L (45-117); Bilirubin, Total 0.3 mg/dL (0.2-1.0); Total Protein 4.6 g/dL (6.4-8.2)
[2022-04-02 07:38] LABS: Band Neutrophils % (manual) 1; Eosinophils % (manual) 1 (0-7); Lymphocytes % (manual) 12 (10.0-50.0); Monocytes % (manual) 2 (0-12)
[2022-04-02] MEDS: ASPirin 81 mg TAB PO SCH ×2 (09:53→10:08)
[2022-04-02] MEDS: FAMOTIDINE (10MG/ML) 2ML VL IV SCH ×2 (09:53→22:00)
[2022-04-02 19:30] VITALS: BP 131/79
[2022-04-02] MEDS ORDERED: DULO1CAP5 PO (19:39)
[2022-04-02] MEDS ORDERED: [UNRECOGNIZED DRUG - CODE] PO (19:39)
[2022-04-02] MEDS ORDERED: QUET1TAB11 PO (19:39)
[2022-04-02 19:44] VITALS: BP 121/78
[2022-04-02 22:00] VITALS: BP 120/62
[2022-04-02] MEDS: ATORVASTATIN 20 MG TAB PO SCH (22:00)
[2022-04-02] MEDS: HYDROcodone-ACET 5/325MG TAB PO PRN (22:30)
[2022-04-03 05:00] VITALS: BP 104/58
[2022-04-03] MEDS: ALUM & MAG HYDROX-SIMETH LIQ(MAALOX) 30 ML PO PRN (05:40)
[2022-04-03] MEDS: HYDROcodone-ACET 5/325MG TAB PO PRN ×2 (05:41→21:52)
[2022-04-03] MEDS: SODIUM CHLOR 0.9% PF (SALINE LOCK) 10ML VIAL/SYR IV SCH ×3 (05:55→22:30)
[2022-04-03 06:24] LABS: Calcium 8.2 mg/dL (8.5-10.1); Potassium 3.7 mmol/L (3.5-5.1)
[2022-04-03 06:52] LABS: Basophils # (auto) 0 10 ^3/uL (0-0.2); Basophils % (auto) 0.8 % (0.0-2.0); Eosinophils # (auto) 0 10 ^3/uL (0-0.8); Eosinophils % (auto) 0.1 % (0.0-7.0); Hematocrit 25.8 % (41.0-53.0); Hemoglobin 9.1 g/dL (13.5-17.5); Lymphocytes # (auto) 0.5 10 ^3/uL (0.4-5.4); Mean Corpuscular Hemoglobin 32.4 pg (28.0-32.0); Mean Corpuscular Hgb Conc. 35.3 g/dL (32.0-36.0); Mean Corpuscular Volume 91.7 fL (80.0-100.0); Monocytes # (auto) 0.3 10 ^3/uL (0-1.3); Neutrophils # (auto) 5.5 10 ^3/uL (1.6-8.6); Neutrophils % (auto) 86.1 % (37.0-80.0); Nucleated Red Blood Cells % 0.1 %; Red Blood Cells 2.82 10^6/uL (4.5-5.90); Red Cell Distribution Width 15.5 % (11.8-14.3); White Blood Cell 6.4 10^3/uL (4.4-10.8)
[2022-04-03 09:00] VITALS: BP 126/68
[2022-04-03] MEDS: FAMOTIDINE (10MG/ML) 2ML VL IV SCH ×2 (09:37→22:30)
[2022-04-03] MEDS: ASPirin 81 mg TAB PO SCH (09:45)
[2022-04-03 10:46] LABS: Cholesterol 118 mg/dL (< 200); HDL Cholesterol 42 mg/dL (40-59); LDL Cholesterol 67 mg/dL (< 100); Triglycerides 79 mg/dL (< 150)
[2022-04-03 13:00] VITALS: BP 131/71
[2022-04-03 20:00] VITALS: BP 112/72
[2022-04-03 22:00] VITALS: BP 112/72
[2022-04-03] MEDS: APIXABAN 5 MG TAB PO SCH (22:31)
[2022-04-03] MEDS: ATORVASTATIN 20 MG TAB PO SCH (22:31)
[2022-04-04] MEDS: HYDROcodone-ACET 5/325MG TAB PO PRN ×2 (01:48→10:57)
[2022-04-04 05:00] VITALS: BP 99/56
[2022-04-04 06:08] LABS: BUN/Creatinine Ratio 33.3; Calcium 7.9 mg/dL (8.5-10.1); Potassium 3.2 mmol/L (3.5-5.1)
[2022-04-04] MEDS: SODIUM CHLOR 0.9% PF (SALINE LOCK) 10ML VIAL/SYR IV SCH ×2 (06:17→10:07)
[2022-04-04 06:22] LABS: Hematocrit 27.3 % (41.0-53.0); Hemoglobin 9.5 g/dL (13.5-17.5); Mean Corpuscular Hemoglobin 31.9 pg (28.0-32.0); Mean Corpuscular Hgb Conc. 34.8 g/dL (32.0-36.0); Mean Corpuscular Volume 91.7 fL (80.0-100.0); Red Blood Cells 2.98 10^6/uL (4.5-5.90); Red Cell Distribution Width 16.2 % (11.8-14.3); White Blood Cell 7.1 10^3/uL (4.4-10.8)
[2022-04-04 06:26] LABS: Band Neutrophils % (manual) 0; Basophils % (manual) 0 (0.0-2.0); Blast Cells 0; Eosinophils % (manual) 0 (0-7); Metamyelocytes % 0; Myelocytes % 0; Promyelocytes % 0; Reactive Lymphocytes 0
[2022-04-04 08:26] VITALS: BP 108/74
[2022-04-04] MEDS: ALUM & MAG HYDROX-SIMETH LIQ(MAALOX) 30 ML PO PRN (08:26)
[2022-04-04 08:29] LABS: Lymphocytes % (manual) 9 (10.0-50.0); Monocytes % (manual) 9 (0-12)
[2022-04-04 09:00] VITALS: BP 108/74
[2022-04-04] MEDS: ASPirin 81 mg TAB PO SCH (10:00)
[2022-04-04] MEDS: APIXABAN 5 MG TAB PO SCH (10:00)
[2022-04-04] MEDS: FAMOTIDINE (10MG/ML) 2ML VL IV SCH (10:00)
[2022-04-04 13:00] VITALS: BP 109/76
[2022-04-04] MEDS ORDERED: APIX5TAB PO (15:53)
[2022-04-04 17:00] VITALS: BP 99/62
[2022-04-04 17:45] VITALS: BP 99/62
[2022-04-04] MEDS ORDERED: ATOR40TA52 PO (18:47)
== END 2022-04-04 19:21 | disposition home health service (06) | DRG 64 ==
LOC: EDBD 18:35 → ER 18:35 → TELE 23:56 → TELE-WESTW 04-02 18:29
PROVIDERS: ADMIT Nurse Practitioner Family; ATTEND Internal Medicine
DX: I63.9 Cerebral infarction, unspecified (principal); E43 Unspecified severe protein-calorie malnutrition; G81.91 Hemiplegia, unspecified affecting right dominant side; C85.93 Non-Hodgkin lymphoma, unspecified, intra-abdominal lymph nodes; Z68.1 Body mass index [BMI] 19.9 or less, adult; R64 Cachexia; E88.09 Other disorders of plasma-protein metabolism, not elsewhere classified; Z20.822 Contact with and (suspected) exposure to COVID-19; I10 Essential (primary) hypertension; R29.703 NIHSS score 3; Z85.89 Personal history of malignant neoplasm of other organs and systems
CPT/HCPCS: 36415; 70496; 70498; 70551; 71045; 80048; 80053; 80061; 81001; 83036; 83735; 83880; 84484; 85007; 85025; 85027; 93005; 93306; 96365; 97116; 97163; 97530; G0378; J2405; J3490; P9047